=== PATIENT | female | born 1995 | race Caucasian/White ===

== ENCOUNTER 2017-11-15 21:13 | Emergency (ER) | payer OTHER, SELFPAY | END 2017-11-15 22:54 | disposition home or self-care (01) | PROVIDERS: Family Provider Internal Medicine; PCP Internal Medicine | DX: S39.012A Strain of muscle, fascia and tendon of lower back, initial encounter (principal) | CPT/HCPCS: 96372; 99283; J1885 ==

== ENCOUNTER 2018-01-08 21:04 | Emergency (ER) | payer OTHER, SELFPAY ==
[2018-01-08 21:07] VITALS: BP 123/82; PULSE 98; RESP 14; TEMP 37.1; O2SAT 100; BMI 41.1
--- NOTE | 2018-01-08 21:16 | ED.NAVMDI ---
HPI - Nausea/Vomiting/Diarrhea <ROSE Haines - Last Filed: 01/08/18 22:27> General Chief complaint: Nausea/Vomiting/Diarrhea Stated complaint: VOMITING TODAY AND NOT FEELING GOOD Time Seen by Provider: 01/08/18 21:24 History of Present Illness HPI Narrative: 22-year-old healthy female here for complaint of nausea vomiting and diarrhea that started since yesterday. She denies any fever but feels she has had chills. Positive p.o. intake. She denies any abdominal pain or flank pain. She reports several episodes of vomiting today. She denies any contacts with people that have similar symptoms. She denies any recent travel or time in the outdoors. She denies any changes in her diet. No other concerns or complaints Related Data Previous Rx's Medication Instructions Recorded ondansetron 4 mg PO Q6H PRN #10 tab 01/08/18 Allergies Allergy/AdvReac Type Severity Reaction Status Date / Time No Known Drug Allergies Allergy Verified 01/08/18 21:10 Review of Systems <ROSE Haines - Last Filed: 01/08/18 22:27> Constitutional Denies chills, Denies fever(s), Denies lethargy and Denies weakness Eyes Denies change in vision, Denies eye discharge, Denies irritation and Denies loss of vision ENT Ears, Nose, Mouth, and Throat: Denies change in voice, Denies neck pain and Denies sore throat Cardiovascular Denies chest pain, Denies irregular heart rhythm, Denies lightheadedness, Denies palpitations, Denies dyspnea, Denies dyspnea on exertion and Denies orthopnea Respiratory Denies cough, Denies dyspnea, Denies dyspnea on exertion and Denies wheezing Gastrointestinal Gastrointestinal: Reports diarrhea and Reports vomiting Genitourinary Denies hematuria, Denies flank pain, Denies urinary incontinence and Denies urinary urgency Musculoskeletal Denies neck pain Integumentary/Breasts Denies pruritus, Denies erythema, Denies rash and Denies wounds Neurologic Denies confusion, Denies loss of vision and Denies weakness Psychiatric Denies anxiety, Denies confusion, Denies depression, Denies homicidal ideation and Denies suicidal ideation Endocrine Denies palpitations Allergic/Immunologic Denies wheezing Exam <ROSE Haines Last Filed: 01/08/18 22:27> Initial Vital Signs Initial Vital Signs: Vital Signs Temperature 98.7 F 01/08/18 21:07 Pulse Rate 98 H 01/08/18 21:07 Respiratory Rate 14 01/08/18 21:07 Blood Pressure 123/82 H 01/08/18 21:07 Pulse Oximetry 100 01/08/18 21:07 Const General: cooperative and well developed Nutritional Appearance: well nourished Orientation: alert, awake, oriented x3 and not confused [facility] Mouth: oral mucosae normal, oropharynx normal and moist mucous membranes Eyes Conjunctivae: conjunctivae normal Sclera: sclerae normal Pupils: PERRL EOM: EOM intact bilaterally Resp Effort & Inspection: normal respiratory effort, able to speak in complete sentences, no respiratory distress and no use of accessory muscles Auscultation: clear to auscultation bilaterally, no rales, no rhonchi and no wheezes Cardio Rate: regular rate Rhythm: regular rhythm Heart Sounds: no click, no gallops, no murmurs and no rubs GI Inspection: non-distended Palpation: soft, no hepatosplenomegaly, No guarding, No pulsatile mass and No tender Auscultation: normal bowel sounds General: No CVA tenderness Skin General: no rashes or lesions noted, No jaundice and No petechiae <Remi Lennon DO - Last Filed: 01/08/18 22:44> Initial Vital Signs Initial Vital Signs: Vital Signs Temperature 98.7 F 01/08/18 21:07 Pulse Rate 98 H 01/08/18 21:07 Respiratory Rate 14 01/08/18 21:07 Blood Pressure 123/82 H 01/08/18 21:07 Pulse Oximetry 100 01/08/18 21:07 Course <ROSE Haines - Last Filed: 01/08/18 22:27> Orders Ordered: Discontinued Medications Sodium Chloride (Normal Saline 0.9%) 1,000 mls @ 1,000 mls/hr IV BOLUS ONE Stop: 01/08/18 22:19 Last Admin: 01/08/18 22:06 Dose: 1,000 mls/hr Ondansetron HCl (Zofran) 4 mg IV NOW ONE Stop: 01/08/18 21:21 Last Admin: 01/08/18 22:05 Dose: 4 mg Ondansetron HCl (Zofran Odt Prepack) 1 bottle MISC SEEINSTR ONE Stop: 01/08/18 22:19 Vital Signs - 8 hr 01/08/18 21:07 01/08/18 22:06 Temperature 98.7 F Pulse Rate 98 H 89 Respiratory Rate 14 18 Blood Pressure 123/82 H Blood Pressure [Right Arm] 121/72 H Pulse Oximetry 100 100 <Remi Lennon DO - Last Filed: 01/08/18 22:44> Orders Ordered: Discontinued Medications Sodium Chloride (Normal Saline 0.9%) 1,000 mls @ 1,000 mls/hr IV BOLUS ONE Stop: 01/08/18 22:19 Last Admin: 01/08/18 22:06 Dose: 1,000 mls/hr Ondansetron HCl (Zofran) 4 mg IV NOW ONE Stop: 01/08/18 21:21 Last Admin: 01/08/18 22:05 Dose: 4 mg Ondansetron HCl (Zofran Odt Prepack) [address] [facility] Stop: 01/08/18 22:19 Vital Signs - 8 hr 01/08/18 21:07 01/08/18 22:06 Temperature 98.7 F Pulse Rate 98 H 89 Respiratory Rate 14 18 Blood Pressure 123/82 H Blood Pressure [Right Arm] 121/72 H Pulse Oximetry 100 100 [facility] - Nausea/Vomiting/Diarrhea <ROSE Haines - Last Filed: 01/08/18 22:27> [facility] Narrative Medical decision making narrative: Urinalysis was obtained and was negative for and negative for urinary tract infection. Normal exam. No abdominal discomfort. Signs and symptoms presents as a viral illness. She was given Zofran IV and fluids in the emergency room which helped her to feel better. She is prescribed Zofran and to help with nausea. Plenty of fluids slowly advance diet as tolerated. Follow up with primary care provider in the next few days for re-evaluation. For any worsening symptoms return to the emergency room. Discharge Plan Departure Patient Disposition: Home, Self-Care Clinical Impression: Nausea vomiting and diarrhea Instructions: Nausea and Vomiting-Adult Activity Restrictions/Additional Instructions: Urinalysis was negative for signs of urinary tract infection. Signs and symptoms presents as a viral illness. Use Zofran as needed to help with the nausea and vomiting. Plenty of fluids. Slowly advance diet as tolerated. Follow up with her primary care provider in the next few days for re-evaluation. For any worsening symptoms return to the emergency room. Prescriptions: New ondansetron 4 mg tablet,disintegrating 4 mg PO Q6H PRN (Reason: nausea and vomiting) Qty: 10 RF: 0 Referrals: Facundo Moran MD [Primary Care Provider] - <Remi Lennon DO - Last Filed: 01/08/18 22:44> Cosign ED Attending Williamature Attestation: I was available for consultation during this patient's emergency department encounter
--- NOTE | 2018-01-08 21:59 | PC.NURSE ---
Initial 2 attempts done by primary RN
[2018-01-08] MEDS: ONDANSETRON 4 MG/2 ML INJ IV (22:05)
[2018-01-08 22:06] VITALS: BP 121/72; PULSE 89; RESP 18; O2SAT 100
[2018-01-08] MEDS: SODIUM CHLORIDE 0.9% 1,000 ML 1000 ML IV (22:06)
[2018-01-08 22:52] VITALS: BP 115/64; PULSE 88; RESP 15; O2SAT 100
[2018-01-08] MEDS: ONDANSETRON 4 MG ODT PREPACK 1 BOTTLE MISC (22:55)
== END 2018-01-08 22:59 | disposition home or self-care (01) ==
PROVIDERS: Emergency Provider Nurse Practitioner Family; Family Provider Internal Medicine; PCP Internal Medicine
DX: R11.2 Nausea with vomiting, unspecified (principal); R19.7 Diarrhea, unspecified
CPT/HCPCS: 36591; 81003; 81025; 96361; 96374; 99283; 99284; J2405

== ENCOUNTER 2018-02-05 21:12 | Emergency (ER) | payer OTHER, SELFPAY ==
[2018-02-05 21:46] VITALS: BP 137/70; PULSE 78; RESP 16; TEMP 36.9; O2SAT 100; BMI 38.4
[2018-02-05 22:08] LABS: Add Manual Diff / Slide Review NO; Basophils Percent Auto 0.8 % (0-2); Eosinophils Percent Auto 1.7 % (2-4); Hematocrit 36.6 % (36-46); Hemoglobin 12.3 g/dL (12.0-16.0); Lymphocytes Percent Auto 30.4 % (25-40); Mean Corpuscular HGB Conc 33.6 % (30-36); Mean Corpuscular Volume 80.4 fL (80-100); Monocytes Percent Auto 7.5 % (3-14); Neutrophils Absolute Auto 6700 /uL (3000-5900); Neutrophils Percent Auto 59.6 % (50-75); Platelet Count 296 X10^3/uL (150-400); Red Blood Cell Count 4.56 X10^6/uL (4.0-5.2); Red Cell Distribution Width 13.7 % (11.6-14.8); White Blood Cell Count 11.3 X10^3/uL (4.5-11.0)
[2018-02-05 22:15] LABS: Alanine Aminotransferase 56 IU/L (9-52); Albumin 4.3 g/dL (3.5-5.0); Albumin Globulin Ratio 1.2 (1.0-2.8); Alkaline Phosphatase 60 U/L (38-126); Aspartate Aminotransferase 38 IU/L (14-36); BUN Creatinine Ratio 18.3 (6-22); Bilirubin Total 0.4 mg/dL (0.2-1.3); Blood Urea Nitrogen 11 mg/dL (7-17); Calcium 9.2 mg/dL (8.4-10.2); Carbon Dioxide 26 mmol/L (22-32); Chloride 105 mmol/L (98-107); Estimated Glomerular Filt Rate > 60.0 mL/min (>60); Globulin 3.7 g/dL (1.7-4.1); Glucose 99 mg/dL (70-100); HEMOLYSIS 33 (0-50); Potassium 3.9 mmol/L (3.4-5.1); Sodium 142 mmol/L (137-145)
[2018-02-05] MEDS: SODIUM CHLORIDE 0.9% 1,000 ML 1000 ML IV (22:25)
[2018-02-05] MEDS: ONDANSETRON 4 MG/2 ML INJ IV (22:25)
[2018-02-05 23:04] VITALS: BP 108/64; PULSE 78; RESP 14; O2SAT 100
--- NOTE | 2018-02-06 04:25 | ED_ITS ---
HPI - Nausea/Vomiting/Diarrhea General Chief complaint: Nausea/Vomiting/Diarrhea Stated complaint: NAUSEA AND VOMITING SINCE YESTERDAY Time Seen by Provider: 02/05/18 21:35 Source: patient and family Mode of arrival: ambulatory Limitations: no limitations History of Present Illness HPI Narrative: 22-year-old otherwise healthy female presents a few episodes of nausea and vomiting over the past day or 2 with 1 episode of loose stool. She has mild generalized abdominal cramping. She denies recent travel, antibiotic use, or exposure to bad food. MD complaint: nausea, vomiting, diarrhea and abdominal pain Onset (ago): day(s) Description of Diarrhea: none Associated Abdominal Pain: Yes Location of pain: diffuse Radiation: diffuse Severity: mild Quality: cramping and aching Pain Consistency: constant Associated symptoms: denies other symptoms Related Data Previous Rx's Medication Instructions Recorded ondansetron 4 mg PO Q6H PRN #10 tab 01/08/18 Allergies Allergy/AdvReac Type Severity Reaction Status Date / Time No Known Drug Allergies Allergy Verified 01/08/18 21:10 Review of Systems Review of Systems All systems reviewed & are unremarkable except as noted in HPI and below Constitutional Denies chills, Denies fever(s), Denies lethargy and Denies weakness Eyes Denies change in vision, Denies eye discharge, Denies irritation and Denies loss of vision ENT Ears, Nose, Mouth, and Throat: Denies change in voice, Denies neck pain and Denies sore throat Cardiovascular Denies chest pain, Denies irregular heart rhythm, Denies lightheadedness, Denies palpitations, Denies dyspnea, Denies dyspnea on exertion and Denies orthopnea Respiratory Denies cough, Denies dyspnea, Denies dyspnea on exertion and Denies wheezing Gastrointestinal Gastrointestinal: Reports abdominal pain, Denies change in bowel habits, Reports diarrhea, Reports nausea and Reports vomiting Genitourinary Denies hematuria, Denies flank pain, Denies urinary incontinence and Denies urinary urgency Musculoskeletal Denies neck pain Integumentary/Breasts Denies pruritus, Denies erythema, Denies rash and Denies wounds Neurologic Denies confusion, Denies loss of vision and Denies weakness Psychiatric Denies anxiety, Denies confusion, Denies depression, Denies homicidal ideation and Denies suicidal ideation Endocrine Denies palpitations Hematologic/Lymphatic Denies easy bruising Allergic/Immunologic Denies wheezing PFSH Social History Smoking Status: Never smoker Exam Narrative Exam Narrative: Pleasant 22-year-old female in no obvious distress. Moist mucous membranes Initial Vital Signs Initial Vital Signs: Vital Signs Temperature 98.4 F 02/05/18 21:46 Pulse Rate 78 02/05/18 21:46 Respiratory Rate 16 02/05/18 21:46 Blood Pressure 137/70 H 02/05/18 21:46 Pulse Oximetry 100 02/05/18 21:46 Const General: cooperative and well developed Nutritional Appearance: well nourished Orientation: alert, awake, oriented x3 and not confused HENND Head: normocephalic and atraumatic Ears: external ears normal and TM's normal bilaterally Nose: external nose normal and No nasal discharge Face and sinus: sinuses nontender, face symmetric, no sinus tenderness and No dry mucous membranes Mouth: oral mucosae normal and moist mucous membranes Teeth and gingiva: dentition normal Throat: tonsils normal and uvula midline Chest Chest: normal inspection of the chest Cardio Rate: regular rate Rhythm: regular rhythm Heart Sounds: no click, no gallops, no murmurs and no rubs Pulses: normal peripheral pulses Back/Spine/Pelvis Back: No CVA tenderness Cervical Spine: cervical ROM normal and No pain with cervical ROM Thoracic/Lumbar Spine: thoracic and lumbar spine normal to inspection Skin General: no rashes or lesions noted, No jaundice and No petechiae Extrem General: full ROM, no clubbing, cyanosis or edema, no pedal edema and no calf tenderness Course Orders Ordered: ED Orders 02/05/18 21:55 Complete Blood Count AUTO DIFF Stat Comprehensive Metabolic Panel Stat Discontinued Medications Sodium Chloride (Normal Saline 0.9%) 1,000 mls @ 1,000 mls/hr IV BOLUS ONE Stop: 02/05/18 23:00 Last Infusion: 02/05/18 23:03 Dose: 0 mls/hr Admin: 02/05/18 22:25 Dose: 1,000 mls/hr Ondansetron HCl (Zofran) 4 mg IV NOW ONE Stop: 02/05/18 22:02 Last Admin: 02/05/18 22:25 Dose: 4 mg Vital Signs - 8 hr 02/05/18 21:46 02/05/18 23:04 Temperature 98.4 F Pulse Rate 78 78 Respiratory Rate 16 14 Blood Pressure 137/70 H 108/64 Pulse Oximetry 100 100 MDM - Nausea/Vomiting/Diarrhea Differential Diagnosis Likely traveler's diarrhea, food poisoning, gastroenteritis and dehydration Lab Data Result diagrams: 02/05/18 21:55 02/05/18 21:55 Lab Results 02/05/18 02/05/18 Range/Units 21:55 21:55 WBC 11.3 H (4.5-11.0) X10^3/uL RBC 4.56 (4.0-5.2) X10^6/uL Hgb 12.3 (12.0-16.0) g/dL Hct 36.6 (36-46) % MCV 80.4 (80-100) fL MCH 27.0 (26-34) PG MCHC 33.6 (30-36) % RDW 13.7 (11.6-14.8) % Plt Count 296 (150-400) X10^3/uL Neut % (Auto) 59.6 (50-75) % Lymph % (Auto) 30.4 (25-40) % [place] % (Auto) 7.5 (3-14) % Eos % (Auto) 1.7 L (2-4) % Baso % (Auto) 0.8 (0-2) % Neut # (Auto) 6700 H (6579-3610) /uL Sodium 142 (137-145) mmol/L Potassium 3.9 (3.4-5.1) mmol/L Chloride 105 (98-107) mmol/L Carbon Dioxide 26 (22-32) mmol/L BUN 11 (7-17) mg/dL Creatinine 0.60 (0.52-1.04) mg/dL Estimated GFR > 60.0 (>60) mL/min BUN/Creatinine Ratio 18.3 (6-22) Glucose 99 (70-100) mg/dL Calcium 9.2 (8.4-10.2) mg/dL Total Bilirubin 0.4 (0.2-1.3) mg/dL AST 38 H (14-36) IU/L ALT 56 H (9-52) IU/L Alkaline Phosphatase 60 (38-126) U/L Total Protein 8.0 (6.3-8.2) g/dL Albumin 4.3 (3.5-5.0) g/dL Globulin 3.7 (1.7-4.1) g/dL Albumin/Globulin Ratio 1.2 (1.0-2.8) Discharge Plan Departure Patient Disposition: Home, Self-Care Clinical Impression: Vomiting Discharge Date/Time: 02/05/18 23:05 Interventions: ED Discharge Assessment Last Done: 02/05/18 23:04 Instructions: DI for Vomiting -- Adult Activity Restrictions/Additional Instructions: 1. Drink plenty of fluids with frequent small sips. 2. For the next 24 hours a clear liquid diet is advised. After that please employ a brat diet which would include bananas, rice, apples, toast. 3. Please take medications as directed. 4. Please follow-up with your doctor in the next 1-2 days. Call the office for an appointment. 5. Please return to the emergency Department for any worsening or persistent symptoms, such as increasing pain or fever. Prescriptions: No Action ondansetron 4 mg tablet,disintegrating 4 mg PO Q6H PRN (Reason: nausea and vomiting) Qty: 10 RF: 0
== END 2018-02-05 23:05 | disposition home or self-care (01) ==
PROVIDERS: Emergency Provider Emergency Medicine; Family Provider Internal Medicine; PCP Internal Medicine
DX: R11.10 Vomiting, unspecified (principal)
CPT/HCPCS: 36591; 80053; 81003; 81025; 85025; 96361; 96374; 99283; 99284; J2405

== ENCOUNTER 2018-02-10 22:00 | Emergency (ER) | payer OTHER, SELFPAY ==
[2018-02-10 22:20] VITALS: BP 131/80; PULSE 87; RESP 15; TEMP 37.1; O2SAT 99; BMI 37.8
[2018-02-11 01:17] VITALS: PULSE 84
--- NOTE | 2018-02-11 01:28 | ED_ITS ---
HPI - Extremity Problem General Chief complaint: Extremity Problem,Nontraumatic Stated complaint: left thigh pain Source: patient Mode of arrival: ambulatory Limitations: no limitations History of Present Illness HPI Narrative: Patient presents to the emergency department today with a chief complaint of some left anterior thigh pain in the absence of any significant injury. She denies taking any Tylenol or Motrin to help with the pain. She denies specific injury but does state she was lifting some heavy objects at home the other day. She does have chronic back pain and when she walks she feels as if the pain radiates up into her back. She denies any trouble with bowel or bladder control. She denies numbness, tingling or weakness. She has had no fever or chills. She denies recent travel or history of blood clots. She denies any rash or other sign of infection MD Complaint: extremity pain Onset (ago): day(s) Pain Consistency: constant Location: left Quality: burning, stabbing and aching Radiation: proximal Relieving factors: nothing Exacerbating factors: weight bearing and walking Associated symptoms: denies other symptoms Related Data Previous Rx's Medication Instructions Recorded ondansetron 4 mg PO Q6H PRN #10 tab 01/08/18 ibuprofen 600 mg PO TID-QID PRN #20 tab 02/11/18 prednisone 20 mg PO DAILY #4 tab 02/11/18 Allergies Allergy/AdvReac Type Severity Reaction Status Date / Time No Known Drug Allergies Allergy Verified 02/10/18 22:20 Review of Systems Review of Systems All systems reviewed & are unremarkable except as noted in HPI and below Constitutional Denies chills, Denies fever(s), Denies lethargy and Denies weakness Eyes Denies change in vision, Denies eye discharge, Denies irritation and Denies loss of vision ENT Ears, Nose, Mouth, and Throat: Denies change in voice, Denies neck pain and Denies sore throat Cardiovascular Denies chest pain, Denies irregular heart rhythm, Denies lightheadedness, Denies palpitations, Denies dyspnea, Denies dyspnea on exertion and Denies orthopnea Respiratory Denies cough, Denies dyspnea, Denies dyspnea on exertion and Denies wheezing Gastrointestinal Gastrointestinal: Denies abdominal pain, Denies change in bowel habits, Denies diarrhea, Denies nausea and Denies vomiting Genitourinary Denies hematuria, Denies flank pain, Denies urinary incontinence and Denies urinary urgency Musculoskeletal Denies neck pain Integumentary/Breasts Denies pruritus, Denies erythema, Denies rash and Denies wounds Neurologic Denies confusion, Denies loss of vision and Denies weakness Psychiatric Denies anxiety, Denies confusion, Denies depression, Denies homicidal ideation and Denies suicidal ideation Endocrine Denies palpitations Hematologic/Lymphatic Denies easy bruising Allergic/Immunologic Denies wheezing PFSH Social History Smoking Status: Never smoker Exam Narrative Exam Narrative: 22-year-old female in no significant or Initial Vital Signs Initial Vital Signs: Vital Signs Temperature 98.8 F 02/10/18 22:20 Pulse Rate 87 02/10/18 22:20 Respiratory Rate 15 02/10/18 22:20 Blood Pressure 131/80 H 02/10/18 22:20 Pulse Oximetry 99 02/10/18 22:20 Const General: cooperative and well developed Nutritional Appearance: well nourished Orientation: alert, awake, oriented x3 and not confused HENMT Head: normocephalic and atraumatic Ears: external ears normal and TM's normal bilaterally Nose: external nose normal and No nasal discharge Face and sinus: sinuses nontender, face symmetric, no sinus tenderness and No dry mucous membranes Mouth: oral mucosae normal and moist mucous membranes Teeth and gingiva: dentition normal Throat: tonsils normal and uvula midline Resp Effort & Inspection: normal respiratory effort, able to speak in complete sentences, no respiratory distress and no use of accessory muscles Auscultation: clear to auscultation bilaterally, no rales, no rhonchi and no wheezes GI Inspection: non-distended Palpation: soft, no hepatosplenomegaly, No guarding, No pulsatile mass and No tender Auscultation: normal bowel sounds Back/Spine/Pelvis Back: No CVA tenderness Cervical Spine: cervical ROM normal and No pain with cervical ROM Thoracic/Lumbar Spine: thoracic and lumbar spine normal to inspection and straight leg raise positive Skin Other: No signs of rash or other lesion on left anterior thigh. No warmth, induration or fluctuance Neuro General: alert, oriented x3, gait normal and no focal motor deficits Speech: speech normal DTR's: Rt Patellar: 2+ and Lt Patellar: 2+ Extrem Left lower extremity: full ROM; no edema Other: No obvious external manifestation of underlying clot, infection or other Course Orders Ordered: Discontinued Medications Ibuprofen (Advil) 800 mg PO NOW ONE Stop: 02/11/18 01:29 Prednisone (Deltasone) 40 mg PO NOW ONE Stop: 02/11/18 01:29 Vital Signs - 8 hr 02/10/18 22:20 02/11/18 01:17 Temperature 98.8 F Pulse Rate 87 Pulse Rate [Left Dorsalis Pedis] 84 Respiratory Rate 15 Blood Pressure 131/80 H Pulse Oximetry 99 MDM - Extremity (Nontraumatic) Differential Diagnosis Likely herpes zoster, cellulitis, superficial thrombophlebitis, lower extremity edema and deep vein thrombosis of lower extremity MDM Narrative Medical decision making narrative: Zoster unlikely as there is no characteristic rash or distribution of the single dermatome Cellulitis unlikely as there is no redness or warmth Superficial or deep clot unlikely as there is no warmth, redness or swelling Discharge Plan Departure Patient Disposition: Home, Self-Care Clinical Impression: Back pain, Acute leg pain Instructions: DI for Low Back Pain Activity Restrictions/Additional Instructions: *You have been diagnosed with [ acute low back pain with radiation to left l leg ] *What to do: *Take medications as directed *Follow up with your primary care provider in 2-3 days, call for an appointment. Let them know you were seen in the Emergency Department and that we ask that you be seen in follow up *Return to ER if you should have any new, worsening or concerning symptoms , such as [ difficulty with bowel or bladder control, weakness of left leg or other bothersome symptoms] Prescriptions: New ibuprofen 600 mg tablet 600 mg PO TID-QID PRN (Reason: pain) Qty: 20 RF: 0 prednisone 20 mg tablet 20 mg PO DAILY Qty: 4 RF: 0 No Action ondansetron 4 mg tablet,disintegrating 4 mg PO Q6H PRN (Reason: nausea and vomiting) Qty: 10 RF: 0 Referrals: Facundo Moran MD [Primary Care Provider] -
[2018-02-11] MEDS: IBUPROFEN 400 MG TABLET 800 MG PO (01:37)
[2018-02-11] MEDS: predniSONE 20 MG TABLET 40 MG PO (01:37)
[2018-02-11 01:57] VITALS: BP 138/80; PULSE 88; RESP 16; O2SAT 99
== END 2018-02-11 01:58 | disposition home or self-care (01) ==
PROVIDERS: Emergency Provider Emergency Medicine; Family Provider Internal Medicine; PCP Internal Medicine
DX: M54.9 Dorsalgia, unspecified (principal); M79.605 Pain in left leg
CPT/HCPCS: 99282; 99283

== ENCOUNTER 2018-06-23 22:08 | Emergency (ER) | payer OTHER, SELFPAY ==
[2018-06-23 22:15] VITALS: BMI 38.4
[2018-06-23 22:17] VITALS: BP 126/88; PULSE 96; RESP 18; O2SAT 98
--- NOTE | 2018-06-23 22:20 | PC.NURSE ---
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 R dominant hand. +CMS intact.
--- NOTE | 2018-06-24 03:00 | ED.UPPEXIN ---
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 She did not fall and denies any direct trauma. She denies numbness, tingling or weakness. She admits to pain on the volar lateral surface of her right forearm. She denies any redness or swelling or any fever or chills. She has no history of the same MD complaint: injury to: right Onset (ago): hour(s) Other Extremity Injury: Right: forearm Other injuries: none Handedness: right Place: work Severity: mild Relieving factors: none Exacerbating factors: movement of extremity Context: injury Associated symptoms: denies other symptoms Related Data Previous Rx's Medication Instructions Recorded ondansetron 4 mg PO Q6H PRN #10 tab 01/08/18 ibuprofen 600 mg PO TID-QID PRN #20 tab 02/11/18 prednisone 20 mg PO DAILY #4 tab 02/11/18 Allergies Allergy/AdvReac Type Severity Reaction Status Date / Time No Known Drug Allergies Allergy Verified 02/10/18 22:20 Review of Systems Review of Systems All systems reviewed & are unremarkable except as noted in HPI and below Constitutional Denies chills, Denies fever(s), Denies lethargy and Denies weakness Eyes Denies change in vision, Denies eye discharge, Denies irritation and Denies loss of vision ENT Ears, Nose, Mouth, and Throat: Denies change in voice, Denies neck pain and Denies sore throat Cardiovascular Denies chest pain, Denies irregular heart rhythm, Denies lightheadedness, Denies palpitations, Denies dyspnea, Denies dyspnea on exertion and Denies orthopnea Respiratory Denies cough, Denies dyspnea, Denies dyspnea on exertion and Denies wheezing Gastrointestinal Gastrointestinal: Denies abdominal pain, Denies change in bowel habits, Denies diarrhea, Denies nausea and Denies vomiting Genitourinary Denies hematuria, Denies flank pain, Denies urinary incontinence and Denies urinary urgency Musculoskeletal Denies neck pain and Reports radiating pain into limb Integumentary/Breasts Denies pruritus, Denies erythema, Denies rash and Denies wounds Neurologic Denies confusion, Denies loss of vision and Denies weakness Psychiatric Denies anxiety, Denies confusion, Denies depression, Denies homicidal ideation and Denies suicidal ideation Endocrine Denies palpitations Hematologic/Lymphatic Denies easy bruising Allergic/Immunologic Denies wheezing [facility] Social History Smoking Status: Never smoker Exam Narrative Exam Narrative: GEN: AOx3 and in mild distress, resting comfortably and splinting her right arm EYES: Pupils are equal, round, and reactive to light and accommodation. Extraoccular muscles are intact bilaterally. There is no subconjunctival hemorrhage or exudate. CHEST: Lungs are clear to auscultation bilaterally and free of wheezes, rales, or rhonchi. Heart rate is regular rhythm, there are no murmurs, clicks, rubs, or gallops. There is no chest wall tenderness. ABD: Abdomen is soft and nontender. There is no guarding or rebound. Bowel sounds are normal in all 4 quadrants. There is no mass or organomegaly. EXT: Full painless ROM of all extremities with no loss of sensation or strength. No obvious deformity to right forearm. No swelling, redness or ecchymosis. Full sensation, strength and range of motion SKIN: Warm, pink, and dry. No erythema or rash Initial Vital Signs Initial Vital Signs: Vital Signs Pulse Rate 96 H 06/23/18 22:17 Respiratory Rate 18 06/23/18 22:17 Blood Pressure 126/88 06/23/18 22:17 Pulse Oximetry 98 06/23/18 22:17 Course Vital Signs - 8 hr 06/23/18 22:17 Pulse Rate 96 H Respiratory Rate 18 Blood Pressure [Left Arm] 126/88 Pulse Oximetry 98 Discharge Plan Departure Patient Disposition: Home Clinical Impression: Forearm strain Discharge Date/Time: 06/23/18 22:50 Interventions: ED Discharge Assessment Last Done: 06/23/18 22:50 Instructions: DI for Forearm Muscle Strain Activity Restrictions/Additional Instructions: *You have been diagnosed with [ right forearm strain ] *What to do: *Take medications as directed: Motrin or Tylenol for pain *Follow up with your primary care provider in 2-3 days, call for an appointment. Let them know you were seen in the Emergency Department and that we ask that you be seen in follow up *Return to ER if you should have any new, worsening or concerning symptoms, such as [increasing pain, swelling, redness, fever or chills ] *Light duty for 1 week. No lifting greater than 15lbs. You must be evaluated by your doctor, or an L&I doctor for full clearance and full duty. Prescriptions: No Action ondansetron 4 mg tablet,disintegrating 4 mg PO Q6H PRN (Reason: nausea and vomiting) Qty: 10 RF: 0 ibuprofen 600 mg tablet 600 mg PO TID-QID PRN (Reason: pain) Qty: 20 RF: 0 prednisone 20 mg tablet 20 mg PO DAILY Qty: 4 RF: 0 Referrals: Facundo Moran MD [Primary Care Provider] -
--- NOTE | 2018-07-04 16:38 | PC.NURSE ---
Pt called regarding L and I paperwork. I informed patient it had not been started. Pt requested L and I be started. Claim number [id number] started.
== END 2018-06-23 22:50 | disposition home or self-care (01) ==
PROVIDERS: Emergency Provider Emergency Medicine; Family Provider Internal Medicine; PCP Internal Medicine
DX: S56.911A Strain of unspecified muscles, fascia and tendons at forearm level, right arm, initial encounter (principal); X50.0XXA Overexertion from strenuous movement or load, initial encounter
CPT/HCPCS: 99282

== ENCOUNTER → 2018-08-30 17:43 | Outpatient (CLI) | payer OTHER, SELFPAY ==
[2018-08-30 18:09] LABS: Add Manual Diff / Slide Review NO; Basophils Absolute Auto 100 /uL (0-100); Basophils Percent Auto 0.7 % (0-2); Eosinophils Absolute Auto 200 /uL (0-450); Eosinophils Percent Auto 1.9 % (2-4); Hematocrit 38.1 % (36-46); Hemoglobin 12.6 g/dL (12.0-16.0); Lymphocytes Absolute Auto 3300 /uL (1100-4500); Mean Corpuscular HGB Conc 33.2 % (30-36); Mean Corpuscular Hemoglobin 26.4 PG (26-34); Mean Corpuscular Volume 79.7 fL (80-100); Monocytes Absolute Auto 800 /uL (0-900); Monocytes Percent Auto 7.7 % (3-14); Neutrophils Absolute Auto 6000 /uL (1500-7000); Neutrophils Percent Auto 57.7 % (50-75); Platelet Count 329 X10^3/uL (150-400); Red Blood Cell Count 4.77 X10^6/uL (4.0-5.2); Red Cell Distribution Width 13.8 % (11.6-14.8); White Blood Cell Count 10.4 X10^3/uL (4.5-11.0)
[2018-08-30 19:04] LABS: Alanine Aminotransferase 49 IU/L (9-52); Albumin 4.1 g/dL (3.5-5.0); Albumin Globulin Ratio 1.3 (1.0-2.8); Alkaline Phosphatase 55 U/L (38-126); Aspartate Aminotransferase 34 IU/L (14-36); Bilirubin Total 0.4 mg/dL (0.2-1.3); Blood Urea Nitrogen 12 mg/dL (7-17); Carbon Dioxide 24 mmol/L (22-32); Chloride 104 mmol/L (98-107); Cholesterol 134 mg/dL (140-199); Estimated Glomerular Filt Rate > 60.0 mL/min (>60); Globulin 3.2 g/dL (1.7-4.1); Glucose 116 mg/dL (70-100); HDL Cholesterol 35 mg/dL (40-60); HEMOLYSIS 26 (0-50); LDL Cholesterol Calculated 70 mg/dL (<100); Sodium 139 mmol/L (137-145); Total Protein 7.3 g/dL (6.3-8.2); Triglycerides 143 mg/dL (35-150)
[2018-08-30 19:34] LABS: TSH w/ Reflex to FT4 1.08 uIU/mL (0.47-4.68)
== END ==
PROVIDERS: PCP Student in an Organized Health Care Education/Training Program; Visit Provider Student in an Organized Health Care Education/Training Program
DX: F32.9 Major depressive disorder, single episode, unspecified (principal); Z13.220 Encounter for screening for lipoid disorders; Z13.228 Encounter for screening for other metabolic disorders
CPT/HCPCS: 36415; 80053; 80061; 84443; 85025

== ENCOUNTER 2018-12-12 21:08 | Emergency (ER) | payer OTHER, SELFPAY ==
[2018-12-12 21:11] VITALS: BP 108/71; PULSE 73; RESP 14; TEMP 36.7; O2SAT 98
--- NOTE | 2018-12-12 22:35 | PC.NURSE ---
Pt states pain to right ear since yesterday after routinely cleaning her ear with a cotton swab and hydrogen peroxide. States cotton swab may have gone in too far injuring her inner ear. Denies drainage, internal ear exam deferred to Dr. Smalls.
--- NOTE | 2018-12-12 22:47 | ED_ITS ---
HPI - Ear Problem General Chief complaint: Ear Stated complaint: RT EAR PAIN Time Seen by Provider: 12/12/18 22:46 Source: patient Mode of arrival: ambulatory Limitations: no limitations History of Present Illness HPI Narrative: The patient complains of right ear pain since yesterday. She denies any recent URI symptoms, no sinus congestion, sore throat or fever. In recent days she did have a cough, but seemed resolved before now. She has no history of chronic ear infections. She has no drainage from the right ear. Related Data Home Medications Medication Instructions Recorded Confirmed No Known Home Medications 12/12/18 12/12/18 Allergies Allergy/AdvReac Type Severity Reaction Status Date / Time No Known Drug Allergies Allergy Verified 02/10/18 22:20 Review of Systems Review of Systems ROS Unobtainable: All systems reviewed & are unremarkable except as noted in HPI and below Constitutional Reports as per HPI, Denies chills, Denies fever(s), Denies lethargy and Denies weakness Eyes Denies eye discharge ENT Ears, Nose, Mouth, and Throat: Denies change in voice, Denies neck pain and Denies sore throat Cardiovascular Denies chest pain, Denies lightheadedness, Denies palpitations and Denies dyspnea Respiratory Denies cough, Denies dyspnea and Reports wheezing Musculoskeletal Denies neck pain Neurologic Denies weakness Endocrine Denies palpitations Allergic/Immunologic Reports wheezing [facility] [place] Medical History No active medical problems (Acute) Surgical History No pertinent past surgical history (Acute) Social History Smoking Status: Never smoker Social History Smoking Status: Never smoker Exam Initial Vital Signs Initial Vital Signs: Vital Signs Temperature 98.1 F 12/12/18 21:11 Pulse Rate 73 12/12/18 21:11 Respiratory Rate 14 12/12/18 21:11 Blood Pressure 108/71 12/12/18 21:11 Pulse Oximetry 98 12/12/18 21:11 Const General: cooperative and well developed Nutritional Appearance: well nourished Orientation: alert, awake, oriented x3 and not confused [facility] Head: normocephalic and atraumatic Ears: external ears normal, TM normal on the left and unable to visualize TM (Due to cerumen impaction) on the right Nose: external nose normal and No nasal discharge Face and sinus: sinuses nontender and face symmetric Mouth: oral mucosae normal and moist mucous membranes Teeth and gingiva: dentition normal Throat: tonsils normal and uvula midline Eyes General: appearance normal, both eyes and all related structures Eyelids: eyelids normal Conjunctivae: conjunctivae normal Sclera: sclerae normal Pupils: PERRL EOM: EOM intact bilaterally Neck Neck: normal visual inspection, trachea midline, No lymphadenopathy, No midline deformity and No JVD Course Course Narrative: The right ear had packed cerumen in the EAC. The patient's nurse initiated irrigation using warm water and peroxide. A small amount ear was removed. I later irrigated with warm water with the syringe. A large amount of wax was removed from the ear canal, was done the ear canals clear. The TMs is slightly inflamed, but not infected. Vital Signs - 8 hr 12/12/18 21:11 Temperature 98.1 F Pulse Rate 73 Respiratory Rate 14 Blood Pressure 108/71 Pulse Oximetry 98 Discharge Plan Departure Patient Disposition: Home Clinical Impression: Cerumen impaction Qualifiers: Laterality: right Qualified Code(s): H61.21 - Impacted cerumen, right ear Instructions: Cerumen Impaction Activity Restrictions/Additional Instructions: Follow-up with her doctor for ongoing ear pain, return here if necessary. Prescriptions: No Action No Known Home Medications RF: 0 Referrals: Akila Skinner PA-C [Primary Care Provider] -
== END 2018-12-12 23:32 | disposition home or self-care (01) ==
PROVIDERS: Emergency Provider Emergency Medicine; Family Provider Internal Medicine; PCP Student in an Organized Health Care Education/Training Program
DX: H61.21 Impacted cerumen, right ear (principal)
CPT/HCPCS: 69209; 99282; 99283

== ENCOUNTER → 2020-02-12 16:40 | Outpatient (CLI) | payer OTHER, SELFPAY ==
[2020-02-12 18:27] LABS: HCG Quantitative /Beta subunit < 2.4 mIU/mL
== END ==
PROVIDERS: Family Provider Internal Medicine; PCP Registered Nurse Diabetes Educator; Referring Provider Registered Nurse Diabetes Educator; Visit Provider Registered Nurse Diabetes Educator
DX: Z31.9 Encounter for procreative management, unspecified (principal)
CPT/HCPCS: 36415; 84702

== ENCOUNTER → 2020-03-06 13:56 | Outpatient (CLI) | payer OTHER, SELFPAY ==
[2020-03-08 15:36] LABS: COVID19 Sendout Not Detected (Not Detected)
== END ==
PROVIDERS: Family Provider Internal Medicine; PCP Registered Nurse Diabetes Educator; Visit Provider Physician Assistant
DX: Z11.59 Encounter for screening for other viral diseases (principal); R53.83 Other fatigue
CPT/HCPCS: 87635

== ENCOUNTER 2020-11-04 20:48 | Emergency (ER) | payer OTHER, SELFPAY ==
[2020-11-04 20:53] VITALS: BP 120/67; PULSE 92; RESP 15; TEMP 37.2; O2SAT 100; BMI 41.6
== END 2020-11-04 21:01 | disposition left against medical advice (07) ==
PROVIDERS: Emergency Provider Emergency Medicine; Family Provider Internal Medicine; PCP Registered Nurse Diabetes Educator; Referring Provider Registered Nurse Diabetes Educator
DX: R22.2 Localized swelling, mass and lump, trunk (principal)
CPT/HCPCS: 99281

== ENCOUNTER → 2021-07-13 14:51 | Outpatient (CLI) | payer OTHER, SELFPAY ==
[2021-07-13 17:10] LABS: HCG Quantitative /Beta subunit < 2.4 mIU/mL
== END ==
PROVIDERS: Family Provider Internal Medicine; PCP Registered Nurse Diabetes Educator; Referring Provider Registered Nurse Diabetes Educator; Visit Provider Registered Nurse Diabetes Educator
DX: Z32.02 Encounter for pregnancy test, result negative (principal)
CPT/HCPCS: 36415; 84702

== ENCOUNTER 2021-08-27 17:15 | Emergency (ER) | payer OTHER, SELFPAY ==
[2021-08-27] VITALS (9 sets, daily range): BP systolic 113–134; BP diastolic 57–73; PULSE 78–89; RESP 20; TEMP 36.9; O2SAT 99–100; BMI 46.4
[2021-08-27 17:53] LABS: Add Manual Diff / Slide Review NO; Basophils Absolute Auto 100 /uL (0-100); Basophils Percent Auto 0.8 % (0-2); Eosinophils Absolute Auto 100 /uL (0-450); Eosinophils Percent Auto 1.1 % (2-4); Hematocrit 39.1 % (36-46); Hemoglobin 13.6 g/dL (12.0-16.0); Lymphocytes Absolute Auto 2800 /uL (1100-4500); Lymphocytes Percent Auto 28.7 % (25-40); Mean Corpuscular HGB Conc 34.6 % (30-36); Mean Corpuscular Hemoglobin 28.3 PG (26-34); Mean Corpuscular Volume 81.6 fL (80-100); Monocytes Absolute Auto 600 /uL (0-900); Monocytes Percent Auto 5.7 % (3-14); Neutrophils Absolute Auto 6200 /uL (1500-7000); Neutrophils Percent Auto 63.7 % (50-75); Platelet Count 285 X10^3/uL (150-400); Red Cell Distribution Width 13.4 % (11.6-14.8); White Blood Cell Count 9.8 X10^3/uL (4.5-11.0)
[2021-08-27 17:59] LABS: Alanine Aminotransferase 62 IU/L (<35); Albumin 4.5 g/dL (3.5-5.0); Albumin Globulin Ratio 1.2 (1.0-2.8); Alkaline Phosphatase 68 U/L (38-126); Aspartate Aminotransferase 53 IU/L (14-36); BUN Creatinine Ratio 17.2 (6-22); Bilirubin Total 0.8 mg/dL (0.2-1.3); Blood Urea Nitrogen 10 mg/dL (7-17); Calcium 9.7 mg/dL (8.4-10.2); Carbon Dioxide 28 mmol/L (22-32); Chloride 101 mmol/L (98-107); Estimated Glomerular Filt Rate > 60.0 mL/min (>60); Globulin 3.9 g/dL (1.7-4.1); Glucose 116 mg/dL (70-100); HEMOLYSIS < 15 (0-50); Lipase 76 U/L (23-300); Potassium 3.8 mmol/L (3.4-5.1); Sodium 137 mmol/L (137-145); Total Protein 8.4 g/dL (6.3-8.2)
--- NOTE | 2021-08-27 18:05 | ED_ITS ---
HPI - Abdominal Pain <ROSE Barragan - Last Filed: 08/27/21 20:53> General Chief Complaint: Abdominal Pain Stated Complaint: PAIN IN RIBS Time Seen by Provider: 08/27/21 17:41 Source: patient Mode of arrival: Ambulatory History of Present Illness HPI narrative: 25-year-old female presents to the emergency department complaining of right rib pain along her breast line, which is intermittent and has been coming and going for the last 2 days. Patient denies any fever, denies any pain with relation to food, denies any nausea vomiting, states she is overdue for her med these by 2 days, is trying to get , denies history of PCOS or other [employer] abnormality, is not on control. She denies any abnormal bowel movements, dysuria, abdominal pain, breast pain or rib pain but she endorses pain along her rib under her breast and currently does not have the pain. Patient states she has an upcoming transvaginal ultrasound to evaluate if she has PCOS, she denies any pelvic pain, abnormal vaginal discharge, or any other abnormality. Related Data Home Medications Medication Instructions Recorded Confirmed No Known Home Medications 12/12/18 08/24/21 Allergies Allergy/AdvReac Type Severity Reaction Status Date / Time No Known Drug Allergies Allergy Verified 08/27/21 17:21 Review of Systems <ROSE Barragan - Last Filed: 08/27/21 20:53> Review of Systems Narrative: General: denies fever, chills, malaise, sweats, fatigue Head/Neck: denies headache, neck pain, dizziness Eyes: denies visual changes, eye pain Cardio: denies chest pain, palpitations, edema Respiratory: denies dyspnea, cough, orthopnea GI: denies abdominal pain, nausea, vomiting, or diarrhea : denies dysuria, hematuria, urinary retention, frequency or incontinence MSK: denies joint pain, muscle weakness Skin: denies rash, itching, skin lesions or other Neuro: denies numbness, tingling Patient History <ROSE Barragan - Last Filed: 08/27/21 20:53> Medical History No active medical problems Patient desires Well woman exam Surgical History No pertinent past surgical history Social History Smoking Status: Never smoker Smoking Status: Never smoker alcohol intake frequency: a few times a month Substance Use Type: does not use Exam <ROSE Barragan - Last Filed: 08/27/21 20:53> Narrative Exam Narrative: Independently reviewed vitals signs and nursing notes. General: Awake, alert, well-nourished and obese, nontoxic, no cardiorespiratory distress Head/Neck: Atraumatic, neck full range of motion, trachea midline, no JVD or lymphadenopathy. Supple, nontender, no meningeal signs. Eyes: Pupils equal round and reactive, EOMI, conjunctiva normal, no scleral icterus or injections Nose: nares patent, no rhinorrhea, without purulent drainage or septal hematoma. Mouth/Throat: uvula midline, moist mucus membranes, posterior pharynx normal, no oral lesions, airway patent Cardio: Regular rate and rhythm, no peripheral edema Respiratory: respirations unlabored without wheezing, stridor, or rales. No re tractions. GI: Abdomen soft, nontender to palpation in all quadrants even along breast line where she endorses intermittent pain. Currently no pain, abdomen is nondistended, no hepato-spenomegaly MSK: Moves all extremities, neurovascularly intact, no flank tenderness Skin: Normal capillary refill, no rash Neuro: Normal speech and cognition, normal gait, A&O x3 Initial Vital Signs Initial Vital Signs: Vital Signs Temperature 98.5 F 08/27/21 17:16 Pulse Rate 89 08/27/21 17:16 Respiratory Rate 08/27/21 17:16 Blood Pressure 134/73 08/27/21 17:16 Pulse Oximetry 99 08/27/21 17:16 <Remi Lennon DO - Last Filed: 09/01/21 07:02> Initial Vital Signs Initial Vital Signs: Vital Signs Temperature 98.5 F 08/27/21 17:16 Pulse Rate 89 08/27/21 17:16 Respiratory Rate 08/27/21 17:16 Blood Pressure 134/73 08/27/21 17:16 Pulse Oximetry 99 08/27/21 17:16 Course <ROSE Barragan - Last Filed: 08/27/21 20:53> Orders Ordered: ED Orders 08/27/21 17:21 EKG-12 Lead Stat 08/27/21 17:35 Complete Blood Count AUTO DIFF Stat Comprehensive Metabolic Panel Stat Lipase Stat 08/27/21 18:27 Test Urine Stat UA Complete [Urinalysis and Microscopic] Stat Vital Signs Vital signs: Vital Signs - 8 hr 08/27/21 17:16 08/27/21 18:24 08/27/21 18:25 Temperature 98.5 F Pulse Rate 89 84 84 Respiratory Rate 20 Blood Pressure 134/73 114/64 Pulse Oximetry 99 100 100 08/27/21 18:30 08/27/21 19:00 08/27/21 19:01 Temperature Pulse Rate 82 78 85 Respiratory Rate Blood Pressure 116/62 115/57 L Pulse Oximetry 100 100 99 08/27/21 19:30 08/27/21 20:00 08/27/21 20:01 Temperature Pulse Rate 82 82 82 Respiratory Rate Blood Pressure 126/67 113/63 Pulse Oximetry 100 99 100 <Remi Lennon DO - Last Filed: 09/01/21 07:02> Orders Ordered: ED Orders 08/27/21 17:21 EKG-12 Lead Stat 08/27/21 17:35 Complete Blood Count AUTO DIFF Stat Comprehensive Metabolic Panel Stat Lipase Stat 08/27/21 18:27 Test Urine Stat UA Complete [Urinalysis and Microscopic] Stat Vital Signs Vital signs: Vital Signs - 8 hr 08/27/21 17:16 08/27/21 18:24 08/27/21 18:25 Temperature 98.5 F Pulse Rate 89 84 84 Respiratory Rate 20 Blood Pressure 134/73 114/64 Pulse Oximetry 99 100 100 08/27/21 18:30 08/27/21 19:00 08/27/21 19:01 Temperature Pulse Rate 82 78 85 Respiratory Rate Blood Pressure 116/62 115/57 L Pulse Oximetry 100 100 99 08/27/21 19:30 08/27/21 20:00 08/27/21 20:01 Temperature Pulse Rate 82 82 82 Respiratory Rate Blood Pressure 126/67 113/63 Pulse Oximetry 100 99 100 MDM - Abdominal Pain <ROSE Barragan Last Filed: 01/27/22 20:53> Lab Data Result diagrams: 08/27/21 17:35 08/27/21 17:35 Labs: Lab Results 08/27/21 08/27/21 08/27/21 Range/Units 17:35 17:35 18:27 WBC 9.8 (4.5-11.0) X10^3/uL RBC 4.80 (4.0-5.2) X10^6/uL Hgb 13.6 (12.0-16.0) g/dL Hct 39.1 (36-46) % MCV 81.6 (80-100) fL MCH 28.3 (26-34) PG MCHC 34.6 (30-36) % RDW 13.4 (11.6-14.8) % Plt Count 285 (150-400) X10^3/uL Neut % (Auto) 63.7 (50-75) % Lymph % (Auto) 28.7 (25-40) % [place] % (Auto) 5.7 (3-14) % Eos % (Auto) 1.1 L (2-4) % Baso % (Auto) 0.8 (0-2) % Neut # (Auto) 6200 (1714-6825) /uL Lymph # (Auto) 2800 (5589-6799) /uL [place] # (Auto) 600 (0-900) /uL Eos # (Auto) 100 (0-450) /uL Baso # (Auto) 100 (0-100) /uL Sodium 137 (137-145) mmol/L Potassium 3.8 (3.4-5.1) mmol/L Chloride 101 (98-107) mmol/L Carbon Dioxide 28 (22-32) mmol/L BUN 10 (7-17) mg/dL Creatinine 0.58 (0.52-1.04) mg/dL Estimated GFR > 60.0 (>60) mL/min BUN/Creatinine Ratio 17.2 (6-22) Glucose 116 H (70-100) mg/dL Calcium 9.7 (8.4-10.2) mg/dL Total Bilirubin 0.8 (0.2-1.3) mg/dL AST 53 H (14-36) IU/L ALT 62 H (<35) IU/L Alkaline Phosphatase 68 (38-126) U/L Total Protein 8.4 H (6.3-8.2) g/dL Albumin 4.5 (3.5-5.0) g/dL Globulin 3.9 (1.7-4.1) g/dL Albumin/Globulin Ratio 1.2 (1.0-2.8) Lipase 76 (23-300) U/L Urine Color Urine Appearance Urine pH (4.5-8.0) Ur Specific [place] (1.000-1.035) Urine Protein (Negative) Urine Glucose (UA) (Negative) g/dL Urine Ketones (NEGATIVE) Urine Occult Blood (Negative) Urine Nitrate (Negative) Urine Bilirubin (NEGATIVE) Urine Urobilinogen (0.2) E.U./dL Ur Leukocyte Esterase (NEGATIVE) Urine RBC (0-5/HPF) Urine WBC (0-5/HPF) Ur Squamous Epith Cells (0-5/HPF) Urine Bacteria (None) Ur Culture Indicated? Urine Test Negative (Negative) 08/27/21 Range/Units 18:27 WBC (4.5-11.0) X10^3/uL RBC (4.0-5.2) X10^6/uL Hgb (12.0-16.0) g/dL Hct (36-46) % MCV (80-100) fL MCH (26-34) PG MCHC (30-36) % RDW (11.6-14.8) % Plt Count (150-400) X10^3/uL Neut % (Auto) (50-75) % Lymph % (Auto) (25-40) % [place] % (Auto) (3-14) % Eos % (Auto) (2-4) % Baso % (Auto) (0-2) % Neut # (Auto) (2866-3403) /uL Lymph # (Auto) (7497-6383) /uL [place] # (Auto) (0-900) /uL Eos # (Auto) (0-450) /uL Baso # (Auto) (0-100) /uL Sodium (137-145) mmol/L Potassium (3.4-5.1) mmol/L Chloride (98-107) mmol/L Carbon Dioxide (22-32) mmol/L BUN (7-17) mg/dL Creatinine (0.52-1.04) mg/dL Estimated GFR (>60) mL/min BUN/Creatinine Ratio (6-22) Glucose (70-100) mg/dL Calcium (8.4-10.2) mg/dL Total Bilirubin (0.2-1.3) mg/dL AST (14-36) IU/L ALT (<35) IU/L Alkaline Phosphatase (38-126) U/L Total Protein (6.3-8.2) g/dL Albumin (3.5-5.0) g/dL Globulin (1.7-4.1) g/dL Albumin/Globulin Ratio (1.0-2.8) Lipase (23-300) U/L Urine Color Yellow Urine Appearance Clear Urine pH 6.0 (4.5-8.0) Ur Specific [place] 1.015 (1.000-1.035) Urine Protein Negative (Negative) Urine Glucose (UA) Negative (Negative) g/dL Urine Ketones Trace H (NEGATIVE) Urine Occult Blood 1+ H (Negative) Urine Nitrate Negative (Negative) Urine Bilirubin Negative (NEGATIVE) Urine Urobilinogen 0.2 (0.2) E.U./dL Ur Leukocyte Esterase Negative (NEGATIVE) Urine RBC 1-5/hpf (0-5/HPF) Urine WBC 0-1/hpf (0-5/HPF) Ur Squamous Epith Cells 1-5 /hpf (0-5/HPF) Urine Bacteria Few (2-10) H (None) Ur Culture Indicated? Cult not indicated Urine Test (Negative) Point of care testing: Urine Dip Bedside Urine Glucose Negative Bedside Urine Bilirubin - Negative Bedside Urine Ketone - Negative Urine Specific [place] 1.015 Bedside Urine Occult Blood +/- Bedside Urine pH 6.0 Bedside Urine Protein - Negative Bedside Urine Urobilinogen - Negative Bedside Urine Nitrite - Negative Bedside Urine Leukocytes - Negative Esterase MDM Narrative Medical decision making narrative: Female presents to the emergency department for intermittent right lower breast pain which has been present for approximately 2 days. Patient states she desires and has been having irregular menses for the last 2 cycles. She states she is overdue by 2 days. test today was negative. Patient has been afebrile without nausea vomiting, abdominal pain, abnormal stool or dysuria. She currently is pain-free. Lab work today was overall unremarkable except for mildly elevated AST at 53 ALT is 62. Lipase was normal at 76. UA showed trace ketones, trace of blood, few bacteria, she denied dysuria, this was not cultured or treated with antibiotics. My suspicion is that this patient has PCOS, she has an upcoming transvaginal ultrasound on September 01. She denies any abdominal pain, nausea vomiting, or any pain relation to food. She was nontender over right upper quadrant. Discussed a low-fat diet, low sugar diet and to monitor her symptoms and follow up with her primary care provider at her upcoming appointment. I recommend a right upper quadrant ultrasound scheduled as an outpatient. Patient had recently eaten in did not have pain today so an emergent right upper quadrant ultrasound was not indicated. Differential includes gallstones, breast pain with relation to her menses cycle, PCOS, pancreatitis, pyelonephritis, renal calculi, UTI, appendicitis. Patient is appropriate and amenable to discharge home. Vital signs are stable on repeat examination is unremarkable. Patient has been informed of results. Patient has been given strict return to ER precautions for any new or worsening symptoms. Patient understands to follow up closely with outpatient providers as instructed. Patient understands plan and agrees to discharge home. All questions and concerns answered at this time. <Remi Lennon, DO - Last Filed: 09/01/21 07:02> Lab Data Labs: Lab Results 08/27/21 08/27/21 08/27/21 Range/Units 17:35 17:35 18:27 WBC 9.8 (4.5-11.0) X10^3/uL RBC 4.80 (4.0-5.2) X10^6/uL Hgb 13.6 (12.0-16.0) g/dL Hct 39.1 (36-46) % MCV 81.6 (80-100) fL MCH 28.3 (26-34) PG MCHC 34.6 (30-36) % RDW 13.4 (11.6-14.8) % Plt Count 285 (150-400) X10^3/uL Neut % (Auto) 63.7 (50-75) % Lymph % (Auto) 28.7 (25-40) % [place] % (Auto) 5.7 (3-14) % Eos % (Auto) 1.1 L (2-4) % Baso % (Auto) 0.8 (0-2) % Neut # (Auto) 6200 (1312-7916) /uL Lymph # (Auto) 2800 (1786-6590) /uL [place] # (Auto) 600 (0-900) /uL Eos # (Auto) 100 (0-450) /uL Baso # (Auto) 100 (0-100) /uL Sodium 137 (137-145) mmol/L Potassium 3.8 (3.4-5.1) mmol/L Chloride 101 (98-107) mmol/L Carbon Dioxide 28 (22-32) mmol/L BUN 10 (7-17) mg/dL Creatinine 0.58 (0.52-1.04) mg/dL Estimated GFR > 60.0 (>60) mL/min BUN/Creatinine Ratio 17.2 (6-22) Glucose 116 H (70-100) mg/dL Calcium 9.7 (8.4-10.2) mg/dL Total Bilirubin 0.8 (0.2-1.3) mg/dL AST 53 H (14-36) IU/L ALT 62 H (<35) IU/L Alkaline Phosphatase 68 (38-126) U/L Total Protein 8.4 H (6.3-8.2) g/dL Albumin 4.5 (3.5-5.0) g/dL Globulin 3.9 (1.7-4.1) g/dL Albumin/Globulin Ratio 1.2 (1.0-2.8) Lipase 76 (23-300) U/L Urine Color Urine Appearance Urine pH (4.5-8.0) Ur Specific [place] (1.000-1.035) Urine Protein (Negative) Urine Glucose (UA) (Negative) g/dL Urine Ketones (NEGATIVE) Urine Occult Blood (Negative) Urine Nitrate (Negative) Urine Bilirubin (NEGATIVE) Urine Urobilinogen (0.2) E.U./dL Ur Leukocyte Esterase (NEGATIVE) Urine RBC (0-5/HPF) Urine WBC (0-5/HPF) Ur Squamous Epith Cells (0-5/HPF) Urine Bacteria (None) Ur Culture Indicated? Urine Test Negative (Negative) 08/27/21 Range/Units 18:27 WBC (4.5-11.0) X10^3/uL RBC (4.0-5.2) X10^6/uL Hgb (12.0-16.0) g/dL Hct (36-46) % MCV (80-100) fL MCH (26-34) PG MCHC (30-36) % RDW (11.6-14.8) % Plt Count (150-400) X10^3/uL Neut % (Auto) (50-75) % Lymph % (Auto) (25-40) % [place] % (Auto) (3-14) % Eos % (Auto) (2-4) % Baso % (Auto) (0-2) % Neut # (Auto) (6249-3452) /uL Lymph # (Auto) (7517-9290) /uL [place] # (Auto) (0-900) /uL Eos # (Auto) (0-450) /uL Baso # (Auto) (0-100) /uL Sodium (137-145) mmol/L Potassium (3.4-5.1) mmol/L Chloride (98-107) mmol/L Carbon Dioxide (22-32) mmol/L BUN (7-17) mg/dL Creatinine (0.52-1.04) mg/dL Estimated GFR (>60) mL/min BUN/Creatinine Ratio (6-22) Glucose (70-100) mg/dL Calcium (8.4-10.2) mg/dL Total Bilirubin (0.2-1.3) mg/dL AST (14-36) IU/L ALT (<35) IU/L Alkaline Phosphatase (38-126) U/L Total Protein (6.3-8.2) g/dL Albumin (3.5-5.0) g/dL Globulin (1.7-4.1) g/dL Albumin/Globulin Ratio (1.0-2.8) Lipase (23-300) U/L Urine Color Yellow Urine Appearance Clear Urine pH 6.0 (4.5-8.0) Ur Specific [place] 1.015 (1.000-1.035) Urine Protein Negative (Negative) Urine Glucose (UA) Negative (Negative) g/dL Urine Ketones Trace H (NEGATIVE) Urine Occult Blood 1+ H (Negative) Urine Nitrate Negative (Negative) Urine Bilirubin Negative (NEGATIVE) Urine Urobilinogen 0.2 (0.2) E.U./dL Ur Leukocyte Esterase Negative (NEGATIVE) Urine RBC 1-5/hpf (0-5/HPF) Urine WBC 0-1/hpf (0-5/HPF) Ur Squamous Epith Cells 1-5 /hpf (0-5/HPF) Urine Bacteria Few (2-10) H (None) Ur Culture Indicated? Cult not indicated Urine Test (Negative) Point of care testing: Urine Dip Bedside Urine Glucose Negative Bedside Urine Bilirubin - Negative Bedside Urine Ketone - Negative Urine Specific [place] 1.015 Bedside Urine Occult Blood +/- Bedside Urine pH 6.0 Bedside Urine Protein - Negative Bedside Urine Urobilinogen - Negative Bedside Urine Nitrite - Negative Bedside Urine Leukocytes - Negative Esterase Discharge Plan Departure Patient Disposition: Home Clinical Impression: Rib pain on right side, Irregular menses Instructions: Polycystic Ovary Syndrome, DI for Gallstones Activity Restrictions/Additional Instructions: *You have been diagnosed with an irregular menses and right breast pain. Today your lab work is reassuring that there is not a surgical or emergent cause for your symptom. Please follow-up with your primary care provider about this pain if it continues, I suggest a right upper quadrant ultrasound to evaluate for gallstones. Your lipase was not elevated, your liver enzymes are mildly elevated above baseline but currently you do not have any pain, fever, nausea vomiting so I recommend following up with your primary care provider about this. Please take ibuprofen every 6 hours as needed for your pain. Please eat a low- fat diet in case this is gallstones to see if that helps improve your pain. Go to your ultrasound and follow-up with your primary care provider if you get PCOS. She may have good recommendations for you. It is helpful to keep your blood sugar levels down and avoid sugars and carbs when you can in eat a balanced diet. This may help you ovulate as well. Wishing you luck and fertility. *What to do: *Please continue to take your regular medications as directed. [ ] New medication prescriptions sent to your pharmacy: [ ] [ ] New medication written as a paper prescription [x ] No new medications given *Please follow up with your primary care provider in 2-3 days, call for an appointment. Let them know you were seen in the Emergency Department and that we ask that you be seen in follow up. We will electronically transmit a record of today's note if your PCP is in our system *If you do not have a primary care provider please contact the [facility] Resource line at [phone]. They will ask some questions about your medical history and help get you set up with a doctor in the community. *Return to Emergency Department if you should have any new, worsening or concerning symptoms, such as [fever greater than 101F, chills, worsening pain, persistent vomiting or other bothersome symptoms] Prescriptions: No Action No Known Home Medications 0RF Referrals: Ynes Baldiwn MD [Physician] - 7-10 days Aidan Lees ARNP [Primary Care Provider] - <Remi Lennon DO - Last Filed: 09/01/21 07:02> Cosign ED Attending [facility] Attestation: Dr Lennon Co-Sign Statement: I was available for consultation during this patient's emergency department visit. This chart is signed by myself for administrative purposes only. I did not have direct contact with this patient during this visit. They were seen independently by the APC.
--- NOTE | 2021-08-27 18:38 | PC.NURSE ---
Pt states funny feeling under right breast x 3 days. Pain 2.5/10. Her family told her it might be a gallbladder issue and someone mentioned it might be PCOS. Pt states she is trying to get . Denies N/V/D/fever.
[2021-08-27 18:56] LABS: Appearance Urine UA CLEAR; Bilirubin Urine UA NEGATIVE (NEGATIVE); Color Urine UA YELLOW; Glucose Urine UA NEGATIVE (Negative); Ketones Urine UA TRACE (NEGATIVE); Leukocyte Esterase Urine UA NEGATIVE (NEGATIVE); Nitrite Urine UA NEGATIVE (Negative); Occult Blood Urine UA 1+ (Negative); Protein Urine UA NEGATIVE (Negative); Specific Gravity Urine UA 1.015 (1.000-1.035); Urobilinogen Urine UA 0.2 E.U./dL (0.2)
[2021-08-27 18:58] LABS: Pregnancy Test Urine Negative (Negative)
[2021-08-27 19:29] LABS: RBC Urine 1-5/HPF (0-5/HPF); WBC Urine 0-1/HPF (0-5/HPF)
[2021-08-27 19:30] LABS: Bacteria Urine Few (2-10); Culture Indicated Urine Cult Not Indicated; Squamous Epithelial Cell Urine 1-5 /HPF (0-5/HPF)
== END 2021-08-27 20:18 | disposition home or self-care (01) ==
PROVIDERS: Emergency Medicine; Emergency Provider Nurse Practitioner Critical Care Medicine; Family Provider Internal Medicine; PCP Registered Nurse Diabetes Educator
DX: R07.81 Pleurodynia (principal); N92.6 Irregular menstruation, unspecified
CPT/HCPCS: 36415; 80053; 81001; 81003; 81025; 83690; 85025; 93005; 99283; 99284

== ENCOUNTER → 2021-09-01 09:06 | Outpatient (CLI) | payer OTHER, SELFPAY ==
--- NOTE | 2021-09-01 09:09 | DI.US.S_ITS ---
PROCEDURE: US PELVIC COMPLETE INDICATIONS: INFERTILITY TECHNIQUE: Real-time scanning was performed of the pelvic organs, with image documentation. Additional endovaginal scanning was necessary due to incomplete visualization of the adnexal and endometrial structures by transabdominal scanning. COMPARISON: None. FINDINGS: This study is limited by body habitus. Uterus: Uterus is anteverted and normal in size at 7.7 x 4.8 x 3.3 cm. The myometrium is homogeneous. The endometrium measures 9 mm combined thickness. Incidental note is made of nabothian cysts. There is a small amount of fluid seen within the cervical canal. Ovaries: The right ovary measures 4.4 x 4.5 x 2.2 cm, with a calculated ovarian volume of 22.8 cc. The left ovary measures 4.4 x 3.1 x 2.7 cm, with a calculated ovarian volume of 19.3 cc. The ovaries have a normal sonographic appearance, with a dominant follicle seen involving the right ovary, which is considered to within physiologic limits. Less than 12 follicles can be seen in each ovary. No adnexal masses are seen. Other: No pathologic free abdominal or pelvic fluid. IMPRESSION: No significant pelvic ultrasound abnormality is seen to explain infertility. We strive to produce accurate, complete, and clear reports of imaging services. To assist us in improving patient care, this report was composed using standard report templates and voice recognition software. Therefore, it may contain abnormal punctuation, insertions and/or omissions. Occasional wrong-word or sound-alike substitutions may occur. Though we review the report and make efforts to correct it, we do recommend that the report be read carefully in proper context to recognize any text inaccuracies. Dictated by: Wilfrido Shaver M.D. on 09/01/2021 at 8:43 Approved by: Wilfrido Shaver M.D. on 09/01/2021 at 8:44
== END ==
PROVIDERS: Family Provider Internal Medicine; PCP Registered Nurse Diabetes Educator; Referring Provider Obstetrics & Gynecology; Visit Provider Obstetrics & Gynecology
DX: Z31.9 Encounter for procreative management, unspecified (principal); N97.9 Female infertility, unspecified
CPT/HCPCS: 76830; 76856

== ENCOUNTER → 2021-09-18 13:03 | Outpatient (CLI) | payer OTHER, SELFPAY ==
[2021-09-18 15:18] LABS: Hemoglobin A1C% w Est Avg Glu 5.7 % (4.0-6.0)
[2021-09-18 15:58] LABS: Follicle Stimulating Hormone 5.37 mIU/mL
[2021-09-18 16:05] LABS: Free T4, Direct Thyroxine 1.26 ng/dL (0.78-2.19)
[2021-09-18 16:19] LABS: Thyroid Stimulating Hormone 1.34 uIU/mL (0.47-4.68)
[2021-09-18 17:16] LABS: Prolactin 23.4 ng/mL (3.0-18.6)
[2021-09-19 08:35] LABS: Varicella IgG Antibody 2234 index (Immune >165)
[2021-09-22 12:11] LABS: Estrogen 669 pg/mL (.)
== END ==
PROVIDERS: Obstetrics & Gynecology; Family Provider Internal Medicine; PCP Registered Nurse Diabetes Educator; Referring Provider Registered Nurse Diabetes Educator; Visit Provider Registered Nurse Diabetes Educator
DX: N97.9 Female infertility, unspecified (principal)
CPT/HCPCS: 36415; 82672; 83001; 83036; 84146; 84439; 84443; 86735; 86762; 86765; 86787

== ENCOUNTER → 2021-10-06 09:03 | Outpatient (CLI) | payer OTHER, SELFPAY ==
--- NOTE | 2021-10-06 09:12 | DIET.CONS ---
Dietary Consultation Note Assessment: 25y F [address] visit for help losing weight, pt currently being worked up for PCOS and NAFLD, has preDM with A1c 5.7. Pt would like to lose 50# to help her with infertility. Pt desires to try keto-type diet to help with early weight loss then transition into general healthy eating plan. Wt/Eating Hx: Pt always in a bigger body, lived with parents who worked, they didn't care what she ate, only that she did eat, grandma came over and made many meals. Was in soccer and cheerleading. Was last under 200# six years ago when 19yo, feels she is actively gaining weight right now, going up in pant size. Feels biggest contributor to weight gain is eating out fast-food rather than eating at home. 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 Lives with fiance and two kids (7 and 6yo), partner got gall bladder out so trying to eat healthier as a family. Family dinners only really happen on weekends, usually Tuesday. 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 Interventions: 1. Educated pt on added sugar in her diet, sources generally sugar-sweetened beverages- was doing large Starbucks white mocha daily (60g sugar), large sweet iced tea (40g sugar), and sometimes horchata, consuming four times the added sugar which her body could process healthfully. Pt has cut out Starbucks and will switch to unsweet iced tea. 2. Collaborated c pt on meal plan to try keto diet to see if helpful for her weight loss efforts. Plan: B: coffee c SF cream, egg bites or omelet or yogurt L: pt will batch cook two keto meals weekly on Tuesday to bring to work instead of eating out Sn: Premier Protein drink plus hb egg or yogurt or cheese stick (depending on breakfast). Monitoring/Evaluations: telehealth f/u in 3 weeks to assess progress and problem solve barriers. Electronically Signed by: Uma Hong 10/06/21 09:[address] [address]
== END ==
PROVIDERS: Family Provider Internal Medicine; PCP Registered Nurse Diabetes Educator; Referring Provider Registered Nurse Diabetes Educator; Visit Provider Registered Nurse Diabetes Educator
DX: R73.03 Prediabetes (principal); E28.2 Polycystic ovarian syndrome; K76.0 Fatty (change of) liver, not elsewhere classified
CPT/HCPCS: 97802

== ENCOUNTER → 2022-02-09 17:23 | Outpatient (CLI) | payer OTHER, SELFPAY ==
[2022-02-09 19:03] LABS: Progesterone, Total 3.39 ng/mL
[2022-02-11 04:22] LABS: Prolactin 27.9 ng/mL (3.0-18.6)
[2022-02-11 05:23] LABS: Hemoglobin A1C% w Est Avg Glu 5.6 % (4.0-6.0)
== END ==
PROVIDERS: Family Provider Internal Medicine; PCP Registered Nurse Diabetes Educator; Referring Provider Obstetrics & Gynecology; Visit Provider Obstetrics & Gynecology
DX: N92.6 Irregular menstruation, unspecified (principal)
CPT/HCPCS: 36415; 83036; 84144; 84146

== ENCOUNTER → 2022-02-26 11:38 | Outpatient (CLI) | payer OTHER, SELFPAY ==
--- NOTE | 2022-02-26 | DI.MRI.S_ITS ---
PROCEDURE: MR BRAIN (PITUITARY) WWO CON INDICATIONS: ELEVATED PROLACTIN TECHNIQUE: Noncontrast sagittal and axial FLAIR, axial gradient echo, axial diffusion and ADC through the brain. Thin-slice sagittal and coronal T1 spin echo, coronal T2 fast spin echo through the pituitary. After the administration contrast, optional dynamic coronal T1 spin echo, thin-slice coronal and sagittal T1 spin echo images through the pituitary fossa; axial and coronal and sagittal T1 spin echo with fat saturation through the brain. COMPARISON: None. FINDINGS: Image quality: Excellent. Pituitary Gland: The pituitary gland demonstrates normal signal and bulk. On the postcontrast imaging, no masses or abnormally enhancing areas are seen. The pituitary stalk and infundibulum have an unremarkable appearance. A normal appearing pituitary bright spot is seen posteriorly on the precontrast sagittal T1-weighted images. The optic chiasm and the ventral forebrain have an unremarkable appearance. CSF Spaces: Ventricles are normal in size and shape. Basal cisterns are patent. No extra-axial fluid collections. Brain: No intracranial bleeds or mass effects. No abnormal intracranial enhancement. Beck-white matter interface is intact. Diffusion weighted images demonstrate no acute ischemic insults. Brainstem is normal. Normal intravascular flow voids are present. Skull and face: Calvarial marrow is normal in signal. Orbits appear normal. Sinuses: Sinuses and mastoids are clear. IMPRESSION: No significant pituitary abnormality is seen to explain the patient's presentation. Dictated by: Wilfrido Shaver M.D. on 02/26/2022 at 12:07 Approved by: Wilfrido Shaver M.D. on 02/26/2022 at 12:09
== END ==
PROVIDERS: Family Provider Internal Medicine; PCP Registered Nurse Diabetes Educator; Referring Provider Obstetrics & Gynecology; Visit Provider Obstetrics & Gynecology
DX: R79.89 Other specified abnormal findings of blood chemistry
CPT/HCPCS: 70553; A9579

== ENCOUNTER 2022-05-13 19:29 | Emergency (ER) | payer OTHER, SELFPAY ==
[2022-05-13 19:35] VITALS: BP 140/73; PULSE 90; RESP 18; TEMP 36.6; O2SAT 96
--- NOTE | 2022-05-13 19:44 | DI.RAD.S_ITS ---
PROCEDURE: XR WRIST RT MIN 3V INDICATIONS: twisted it. TECHNIQUE: 4 views of the wrist were acquired. COMPARISON: None. FINDINGS: Bones: No fractures or dislocations. No suspicious bony lesions. Scaphoid view: The scaphoid appears intact. Soft tissues: No suspicious soft tissue calcifications. IMPRESSION: 1. No fracture or dislocation. Dictated by: Paxton Balderrama M.D. on 05/13/2022 at 21:34 Approved by: Paxton Balderrama M.D. on 05/13/2022 at 21:35
--- NOTE | 2022-05-13 20:27 | ED.UPPEXIN ---
HPI - Extremity Injury (Upper) General Chief Complaint: Extremity Injury, Upper Stated Complaint: twisted rt wrist Time Seen by Provider: 05/13/22 19:49 Source: patient Mode of arrival: Ambulatory History of Present Illness HPI narrative: 26-year-old female nonsmoker with noncontributory medical history presents for evaluation of a right wrist injury suffered while at work just prior to arrival. 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 She has full but painful range of motion of the wrist and denies any numbness, tingling or weakness. She denies any direct trauma and did not fall. She has no pain in her elbow or shoulder. She is otherwise well and free of complaint Related Data Previous Rx's Medication Instructions Recorded ondansetron HCl 4 mg tablet 4 mg PO Q8H PRN nausea and 01/05/22 vomiting #10 tabs sumatriptan succinate 50 mg tablet See Rx Instructions PO .COMPLEX 01/05/22 #10 tabs cabergoline 0.5 mg tablet 0.25 mg PO 2XW #8 tabs 04/01/22 Allergies Allergy/AdvReac Type Severity Reaction Status Date / Time No Known Drug Allergies Allergy Verified 02/09/22 10:44 Review of Systems Review of Systems Narrative: GENERAL: Denies chills, fatigue, malaise, fever, sweats. HEENT: Denies sinus pain, ear pain, sore throat, difficulty swallowing, dizziness. RESPIRATORY: Denies dyspnea, cough, wheezing, hemoptysis, sputum. CARDIOVASCULAR: Denies chest pain, palpitations, orthopnea, edema, GASTROINTESTINAL: Denies nausea, vomiting, abdominal pain, diarrhea, constipation, melena. : Denies dysuria, frequency, incontinence, hematuria, urinary retention. MUSCULOSKELETAL: See HPI SKIN: Denies rash, skin lesions, or other NEUROLOGIC: Denies weakness, headache, numbness, change in speech, confusion, seizures, incoordination. PSYCHIATRIC: No concerning psychosocial issues. 12 point review of systems is negative except for those stated above Patient History Medical History (Updated 05/13/22 @ 20:35 by Cristofer Farr DO) No active medical problems Patient desires Well woman exam Surgical History No pertinent past surgical history Social History Smoking Status: Never smoker Smoking Status: Never smoker alcohol intake frequency: a few times a month Substance Use Type: does not use Exam Narrative Exam Narrative: GEN: AOx3 and in mild distress EYES: Pupils are equal, round, and reactive to light and accommodation. Extraoccular muscles are intact bilaterally. There is no subconjunctival hemorrhage or exudate. CHEST: Lungs are clear to auscultation bilaterally and free of wheezes, rales, or rhonchi. Heart rate is regular rhythm, there are no murmurs, clicks, rubs, or gallops. There is no chest wall tenderness. ABD: Abdomen is soft and nontender. There is no guarding or rebound. Bowel sounds are normal in all 4 quadrants. There is no mass or organomegaly. EXT: Full but painful range of motion of the right wrist with pain on ulnar deviation of the wrist, no pain with axial loading of the thumb or in the anatomic snuffbox. This is closed, isolated and neurovascularly intact SKIN: Warm, pink, and dry. No erythema or rash Initial Vital Signs Initial Vital Signs: Vital Signs Temperature 98 F 05/13/22 19:35 Pulse Rate 90 05/13/22 19:35 Respiratory Rate 18 05/13/22 19:35 Blood Pressure 140/73 05/13/22 19:35 Pulse Oximetry 96 05/13/22 19:35 Oxygen Delivery Method 05/13/22 19:35 Procedures Orthopedic Splinting/Casting Injury #1: Side: right Upper Extremity Injury Location: wrist Upper Extremity Immobilizer: wrist splint Post splinting neuro exam: intact Post splinting vascular exam: intact Placed by: Nursing Course Orders Ordered: ED Orders 05/13/22 19:44 XR wrist RT min 3V Stat Vital Signs Vital signs: Vital Signs - 8 hr 05/13/22 19:35 Temperature 98 F Pulse Rate 90 Respiratory Rate 18 Blood Pressure 140/73 Pulse Oximetry 96 Oxygen Delivery Method Room Air MDM - Extremity Injury (Upper) Imaging Data Extremity x-ray #1: Radiologist's Impression: Close Wrist X-Ray (Signed) Paxton Balderrama - 05/13/22 Brain MRI (Signed) Wilfrido Shaver - 02/26/22 Pelvis Ultrasound (Signed) Wilfrido Shaver - 09/01/21 Launch?Image [address] [address] XRay Report Signed Patient: Chepe Mo MR#: [id number] : 1995 Acct:[id number] Age/Sex: 26 / F Date of Service: 05/13/22 Loc: ED Accession Number: [id number] ?? Procedure: XR wrist RT min 3V Ordering Provider: Cristofer Farr D.O. PROCEDURE:? XR WRIST RT MIN 3V ? INDICATIONS: twisted it. ? TECHNIQUE:? 4 views of the wrist were acquired.? ? COMPARISON:? None. ? FINDINGS:? ? Bones:? No fractures or dislocations.? No suspicious bony lesions.? ? Scaphoid view:? The scaphoid appears intact. ? Soft tissues:? No suspicious soft tissue calcifications.? ? IMPRESSION:? ? 1.? No fracture or dislocation. ? ? Dictated by: Paxton Balderrama M.D. on 05/13/2022 at 21:34 ? ? Approved by: Paxton Balderrama M.D. on 05/13/2022 at 21:35 ? Discharge Plan Departure Patient Disposition: Home Clinical Impression: Right wrist sprain Instructions: DI for Wrist Sprain Activity Restrictions/Additional Instructions: *You have been diagnosed with [right wrist sprain. Your history and physical exam are reassuring and there is no evidence of fracture or dislocation] *What to do: *Please continue to take your regular medications as directed. [ ] New medication prescriptions sent to your pharmacy: [ ] [ ] New medication written as a paper prescription [ ] No new medications given *Please follow up with your primary care provider in 2-3 days, call for an appointment. Let them know you were seen in the Emergency Department and that we ask that you be seen in follow up. We will electronically transmit a record of today's note if your PCP is in our system *If you do not have a primary care provider please contact the [facility] Resource line at [phone]. They will ask some questions about your medical history and help get you set up with a doctor in the community. *Return to Emergency Department if you should have any new, worsening or concerning symptoms, such as [fever greater than 101 F, shaking chills, worsening pain, persistent vomiting or other bothersome symptoms] Prescriptions: No Action cabergoline 0.5 mg tablet 0.25 mg PO 2XW Qty: 8 3RF Rx Instructions: take in the evening or bedtime sumatriptan succinate 50 mg tablet See Rx Instructions PO .COMPLEX Qty: 10 3RF Rx Instructions: take 1 tab at onset of headache; if no relief may repeat 1 tab after at least 2 hrs; max = 4 tabs/24 hr PO ondansetron HCl 4 mg tablet 4 mg PO Q8H PRN (Reason: nausea and vomiting) Qty: 10 1RF Referrals: Aidan Lees ARNP [Primary Care Provider] - Stand Alone Forms: Work Release Note Visit Report Forms: Patient Portal/API
== END 2022-05-13 21:35 | disposition home or self-care (01) ==
PROVIDERS: Emergency Provider Emergency Medicine; Family Provider Internal Medicine; PCP Registered Nurse Diabetes Educator
DX: S63.501A Unspecified sprain of right wrist, initial encounter (principal); X50.1XXA Overexertion from prolonged static or awkward postures, initial encounter; Y93.F2 Activity, caregiving, lifting; Y99.0 Civilian activity done for income or pay
CPT/HCPCS: 73110; 99282; 99283

== ENCOUNTER 2023-03-14 15:21 | Emergency (ER) | payer OTHER, SELFPAY ==
[2023-03-14 16:01] VITALS: BP 145/63; PULSE 79; RESP 18; TEMP 37.1; O2SAT 99; BMI 47.5
--- NOTE | 2023-03-14 16:25 | DI.US.S_ITS ---
PROCEDURE: US OB <= 14 WEEKS FETUS INDICATIONS: RIGHT UPPER QUADRANT RIB PAIN. . OUTSIDE/PRIOR DATING DATA: Last menstrual period (LMP): 01/11/2023 LMP-based estimated date of delivery (SEJAL): 10/18/2023 First dating scan (date and location): 03/14/2023 Estimated date of delivery (SEJAL) from first dating scan: 10/19/2023 TECHNIQUE: Real-time scanning was performed of the fetus and maternal pelvic organs, with image documentation. Endovaginal scanning was also performed to better visualize the fetus and maternal ovaries. COMPARISON: None. FINDINGS: Embryo: Intrauterine gestational sac is seen with pole. Industry-rump length is 2.1 cm, compatible with an estimated gestational age of 8 weeks 5 days. Heart rate: 180 beats per minute Maternal organs: A probable right ovarian corpus luteum cyst is seen. No suspicious adnexal mass. IMPRESSION: Single live intrauterine is seen. size is concordant with clinical dates. We strive to produce accurate, complete, and clear reports of imaging services. To assist us in improving patient care, this report was composed using standard report templates and voice recognition software. Therefore, it may contain abnormal punctuation, insertions and/or omissions. Occasional wrong-word or sound-alike substitutions may occur. Though we review the report and make efforts to correct it, we do recommend that the report be read carefully in proper context to recognize any text inaccuracies. Approved by: Asael Flood M.D. on 03/14/2023 at 17:13
[2023-03-14 17:59] VITALS: BP 118/63; PULSE 67; RESP 18; O2SAT 100
--- NOTE | 2023-03-14 18:35 | ED_ITS ---
HPI - <Alfred Coughlin PA-C - Last Filed: 03/14/23 18:49> General Chief complaint: Urogenital-Female Stated complaint: 9 wks /rib pain/uti Time Seen by Provider: 03/14/23 17:29 Source: patient Mode of arrival: Ambulatory History of Present Illness HPI Narrative: 27-year-old female presents to the ED with right-sided rib pain and urinary frequency, urinary urgency. Patient states she was diagnosed with a UTI a few days ago, prescribed antibiotics which she has taken as prescribed. Patient denies dysuria, hematuria, vaginal bleeding, vaginal discharge, pelvic cramping, flank pain, lightheadedness, dizziness, syncope. Patient states that she has had this right-sided rib pain for several months, was even seen at the ED for the same. 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 The rib pain is aggravated by movement and leaning back, laying on the side. No inspiratory pain. Related Data Previous Rx's Medication Instructions Recorded ondansetron HCl 4 mg tablet 4 mg PO Q8H PRN nausea and 01/05/22 vomiting #10 tabs sumatriptan succinate 50 mg tablet See Rx Instructions PO .COMPLEX 01/05/22 #10 tabs cabergoline 0.5 mg tablet 0.25 mg PO 2XW #8 tabs 04/01/22 Allergies Allergy/AdvReac Type Severity Reaction Status Date / Time No Known Drug Allergies Allergy Verified 03/14/23 16:01 Review of Systems <Alfred Coughlin PA-C - Last Filed: 03/14/23 18:49> Review of Systems ROS Unobtainable: All systems reviewed & are unremarkable except as noted in HPI and below Constitutional Constitutional: Denies chills, Denies fatigue, Denies fever(s), Denies frequent falls, Denies lethargy and Denies weakness Eyes Eyes: Denies change in vision, Denies eye discharge, Denies irritation and Denies loss of vision ENT Ears, Nose, Mouth, and Throat: Denies change in voice, Denies dizziness, Denies neck pain, Denies sore throat and Denies throat swelling Cardiovascular Cardiovascular: Denies chest pain, Denies irregular heart rhythm, Denies lightheadedness, Denies palpitations, Denies dyspnea, Denies dyspnea on exertion and Denies orthopnea Respiratory Respiratory: Denies cough, Denies dyspnea, Denies dyspnea on exertion and Denies wheezing Gastrointestinal Gastrointestinal: Denies abdominal pain, Denies change in bowel habits, Denies diarrhea, Denies nausea and Denies vomiting Genitourinary Genitourinary: Denies hematuria, Denies flank pain, Denies urinary incontinence and Reports urinary urgency Comments: Urinary frequency Musculoskeletal Musculoskeletal: Denies back pain, Denies muscle weakness, Denies neck pain, Denies numbness and Denies tingling Comments: Right-sided rib pain Integumentary/Breasts Skin/Breast: Denies pruritus, Denies erythema, Denies rash and Denies wounds Neurologic Neurologic: Denies behavioral changes, Denies confusion, Denies dizziness, Denies frequent falls, Denies loss of vision, Denies numbness, Denies tingling and Denies weakness Psychiatric Psychiatric: Denies anxiety, Denies behavioral changes, Denies confusion, Denies depression, Denies homicidal ideation and Denies suicidal ideation Endocrine Endocrine: Denies fatigue, Denies flushing and Denies palpitations Hematologic/Lymphatic Hematologic/Lymphatic: Denies easy bruising Allergic/Immunologic Allergic/Immunologic: Denies urticaria, Denies throat swelling and Denies wheezing Exam <Alfred Coughlin PA-C - Last Filed: 03/14/23 18:49> Narrative Exam Narrative: Const General:?cooperative, healthy appearing and comfortable [facility] Head:?normal to inspection Ears:?hearing grossly normal bilaterally Nose:?external nose normal Face and sinus:?normal facial exam and sinuses nontender Mouth:?oral mucosae normal Throat:?posterior oropharynx normal Eyes General:?appearance normal, both eyes and all related structures Neck Neck:?normal visual inspection and no lymphadenopathy noted Resp Effort & Inspection:?normal respiratory effort Auscultation:?clear to auscultation bilaterally Cardio Rate:?regular rate Rhythm:?regular rhythm GI Abdomen is soft, nondistended, nontender to palpation. There is no CVA tenderness. Neuro General:?patient alert, patient awake and patient oriented x3 Initial Vital Signs Initial Vital Signs: Vital Signs Temperature 98.8 F 03/14/23 16:01 Pulse Rate 79 03/14/23 16:01 Respiratory Rate 18 03/14/23 16:01 Blood Pressure 145/63 H 03/14/23 16:01 Pulse Oximetry 99 08/14/23 16:01 Oxygen Delivery Method Room Air 03/14/23 16:01 <DO Manjit Kelly Last Filed: 03/16/23 07:53> Initial Vital Signs Initial Vital Signs: Vital Signs Temperature 98.8 F 03/14/23 16:01 Pulse Rate 79 03/14/23 16:01 Respiratory Rate 18 03/14/23 16:01 Blood Pressure 145/63 H 03/14/23 16:01 Pulse Oximetry 99 03/14/23 16:01 Oxygen Delivery Method Room Air 03/14/23 16:01 Course <Alfred Coughlin PA-C - Last Filed: 03/14/23 18:49> Orders Ordered: Discontinued Medications Ondansetron HCl (Ondansetron 4 Mg Odt) 4 mg SL NOW PRN PRN Reason: Nausea And Vomiting Ondansetron HCl (Ondansetron 4 Mg/2 Ml Inj) 4 mg IV NOW PRN PRN Reason: Nausea And Vomiting Vital Signs Vital signs: Vital Signs - 8 hr 03/14/23 16:01 03/14/23 17:59 Temperature 98.8 F Pulse Rate 79 67 Respiratory Rate 18 18 Blood Pressure 145/63 H 118/63 Pulse Oximetry 99 100 Oxygen Delivery Method Room Air Room Air <DO Manjit Kelly Last Filed: 03/16/23 07:53> Orders Ordered: Discontinued Medications Ondansetron HCl (Ondansetron 4 Mg Odt) 4 mg SL NOW PRN PRN Reason: Nausea And Vomiting Ondansetron HCl (Ondansetron 4 Mg/2 Ml Inj) 4 mg IV NOW PRN PRN Reason: Nausea And Vomiting Vital Signs Vital signs: Vital Signs - 8 hr 03/14/23 16:01 03/14/23 17:59 Temperature 98.8 F Pulse Rate 79 67 Respiratory Rate 18 18 Blood Pressure 145/63 H 118/63 Pulse Oximetry 99 100 Oxygen Delivery Method Room Air Room Air MDM - OB/Uterine Contractions <GEOVANNY Bacon Last Filed: 03/14/23 18:49> Lab Data Labs: Urine Dip Bedside Urine Glucose Negative Bedside Urine Bilirubin - Negative Bedside Urine Ketone +++ 80 Urine Specific [place] 1.015 Bedside Urine Occult Blood - Negative Bedside Urine pH 6.0 Bedside Urine Protein - Negative Bedside Urine Urobilinogen - Negative Bedside Urine Nitrite - Negative Bedside Urine Leukocytes - Negative Esterase MDM Narrative Medical decision making narrative: 27-year-old female presents to the ED with right-sided rib pain and urinary frequency, urinary urgency. UA is negative for a UTI. Ultrasound shows a 8 week 5-day-old single live uterine , which is consistent with patient's LMP of 01/11/2023. Patient's symptoms are most likely consistent with a musculoskeletal etiology. Urinary frequency and urinary urgency could be more related to the resolving UTI versus . Recommend lidocaine patch, Tylenol. Recommend follow-up with OBGYN as soon as possible. Patient is awaiting an appointment with Dr. Pierce. ED return precautions discussed with patient. Patient verbalized understanding. Medical records reviewed: Yes <Karli Gilmore, - Last Filed: 03/16/23 07:53> Lab Data Labs: Urine Dip Bedside Urine Glucose Negative Bedside Urine Bilirubin - Negative Bedside Urine Ketone +++ 80 Urine Specific [place] 1.015 Bedside Urine Occult Blood - Negative Bedside Urine pH 6.0 Bedside Urine Protein - Negative Bedside Urine Urobilinogen - Negative Bedside Urine Nitrite - Negative Bedside Urine Leukocytes - Negative Esterase Discharge Plan Departure Patient Disposition: Home Clinical Impression: Rib pain Instructions: DI for Musculoskeletal Pain Activity Restrictions/Additional Instructions: You were evaluated in the ED today for right-sided rib pain. Your history and physical exam is reassuring in that you have had this pain for several months and that it is reproducible with movements, which makes it most likely that it is a musculoskeletal injury. Your urine today was normal, and it is likely that the antibiotics you on on for the UTI is working. Your ultrasound shows a live intrauterine dating at 8 weeks and 5 days, which is consistent with your last menstrual period. Please follow-up with your OBGYN as soon as possible. Please return to the ED if you have worsening symptoms. Prescriptions: No Action cabergoline 0.5 mg tablet 0.25 mg PO 2XW Qty: 8 3RF Rx Instructions: take in the evening or bedtime sumatriptan succinate 50 mg tablet See Rx Instructions PO .COMPLEX Qty: 10 3RF Rx Instructions: take 1 tab at onset of headache; if no relief may repeat 1 tab after at least 2 hrs; max = 4 tabs/24 hr PO ondansetron HCl 4 mg tablet 4 mg PO Q8H PRN (Reason: nausea and vomiting) Qty: 10 1RF Referrals: Aidan Lees ARNP [Primary Care Provider] - Stand Alone Forms: Patient Portal/API, Work Release Note <Karli Gilmore DO - Last Filed: 03/16/23 07:53> Cosign ED Attending Cosignature Attestation: I was immediately available in the department for consultation. Documentation has been reviewed.
== END 2023-03-14 18:00 | disposition home or self-care (01) ==
PROVIDERS: Emergency Provider Student in an Organized Health Care Education/Training Program; Family Provider Internal Medicine; PCP Registered Nurse Diabetes Educator
DX: O26.91 Pregnancy related conditions, unspecified, first trimester (principal); R07.81 Pleurodynia; Z3A.09 9 weeks gestation of pregnancy
CPT/HCPCS: 76801; 76817; 81003; 99281; 99283

== ENCOUNTER → 2023-04-01 12:43 | Outpatient (CLI) | payer OTHER, SELFPAY ==
[2023-04-01 14:42] LABS: Hemoglobin A1C% w Est Avg Glu 5.1 % (4.0-6.0)
[2023-04-01 14:46] LABS: Add Manual Diff / Slide Review NO; Basophils Absolute Auto 100 /uL (0-100); Basophils Percent Auto 0.8 % (0-2); Eosinophils Absolute Auto 100 /uL (0-450); Eosinophils Percent Auto 0.7 % (2-4); Hematocrit 38.5 % (36-46); Lymphocytes Absolute Auto 1900 /uL (1100-4500); Mean Corpuscular HGB Conc 33.9 % (30-36); Mean Corpuscular Hemoglobin 28.5 PG (26-34); Mean Corpuscular Volume 84.1 fL (80-100); Monocytes Absolute Auto 700 /uL (0-900); Monocytes Percent Auto 8.7 % (3-14); Neutrophils Absolute Auto 5100 /uL (1500-7000); Neutrophils Percent Auto 65.8 % (50-75); Platelet Count 265 X10^3/uL (150-400); Red Blood Cell Count 4.58 X10^6/uL (4.0-5.2); Red Cell Distribution Width 14.1 % (11.6-14.8); White Blood Cell Count 7.7 X10^3/uL (4.5-11.0)
[2023-04-02 03:34] LABS: RPR Screen Non Reactive (Non Reactive)
[2023-04-02 08:09] LABS: Varicella IgG Antibody 3716 index (Immune >165)
[2023-04-05 15:13] LABS: Hepatitis B Surface Antigen NEGATIVE s/c (NEGATIVE)
[2023-04-05 15:28] LABS: HIV 1 & 2 Ab/Ag 4th Gen Combo NEGATIVE (NEGATIVE); Hep C Virus Ab w/Reflex Quant NEGATIVE s/c (NEGATIVE)
== END ==
PROVIDERS: Specialist; Family Provider Internal Medicine; PCP Registered Nurse Diabetes Educator; Referring Provider Obstetrics & Gynecology; Visit Provider Obstetrics & Gynecology
DX: Z34.01 Encounter for supervision of normal first pregnancy, first trimester (principal)
CPT/HCPCS: 36415; 80055; 83036; 86787; 86803; 86850; 86900; 86901; 87086; 87389

== ENCOUNTER → 2023-06-07 12:36 | Outpatient (CLI) | payer OTHER, MEDICAID, SELFPAY ==
--- NOTE | 2023-06-07 12:37 | DI.US.S_ITS ---
PROCEDURE: US OB >= 14 WEEKS FETUS INDICATIONS: 20 WEEK ANATOMY SCAN OUTSIDE/PRIOR DATING DATA: Last menstrual period (LMP): 01/11/2023. LMP-based estimated date of delivery (SEJAL): 10/18/2023. First dating scan (date and location): 03/14/2023. Estimated date of delivery (SEJAL) from first dating scan: 10/19/2023. The calculations are made using the clinical SEJAL of 10/18/2023. TECHNIQUE: Real-time scanning was performed of the fetus, with image documentation and biometric measurements. Endovaginal scanning: Not performed COMPARISON: [facility], , OB <= 14 WEEKS FETUS, 04/01/2023, 12:33. FINDINGS: General: A single living intrauterine gestation is present. Presentation: Breech. Placenta: Placental position is posterior , without previa. Amniotic fluid index: 11.9 cm, normal range is 5-24 cm. Single deepest vertical pocket is 3.9 cm. heart rate: 149 beats per minute. Maternal cervical canal: 4.0 cm long. Normal lower limit is 2.5 cm. biometrics: Biparietal diameter: 4.7 cm, 20 weeks 2 days Head circumference: 18.7 cm, 21 weeks 0 days Abdominal circumference: 16.2 cm, 21 weeks 2 days Femur length: 3.5 cm, 21 weeks 1 day Clinically estimated gestational age: 21 weeks 0 days Composite gestational age from present scan: 21 weeks 1 day Estimated weight and percentile: 401 g, 52 percentile Anatomic survey: Neuro: Ventricles are non-dilated at less than 10 mm. Cisterna magna is normal at 3-11 mm. Cerebellum is normal in size and morphology. Nuchal skin fold: Normal at less than 6 mm between 14-21 weeks gestational age. Face: Nose and lips, facial profile are normal. Spine: No evidence for spina bifida. Heart: 4-chambered heart is present, with normal ventricular outflow tracts. Diaphragm: Diaphragm is intact. Stomach: Left-sided stomach is present. Kidneys: No hydronephrosis. Normal is less than 5 mm in 2nd trimester, less than 7 mm in 3rd trimester. Cord: 3-vessel cord has orthotopic insertion. Bladder: Normal in size. Extremities: All 4 extremities identified. IMPRESSION: 1. Single live intrauterine at 21 weeks and 1 day. 2. Normal anatomic survey. We strive to produce accurate, complete, and clear reports of imaging services. To assist us in improving patient care, this report was composed using standard report templates and voice recognition software. Therefore, it may contain abnormal punctuation, insertions and/or omissions. Occasional wrong-word or sound-alike substitutions may occur. Though we review the report and make efforts to correct it, we do recommend that the report be read carefully in proper context to recognize any text inaccuracies. Dictated by: Zach Wallace M.D. on 06/07/2023 at 17:15 Approved by: Zach Wallace M.D. on 06/07/2023 at 17:18
== END ==
PROVIDERS: Family Provider Internal Medicine; PCP Registered Nurse Diabetes Educator; Referring Provider Obstetrics & Gynecology; Visit Provider Obstetrics & Gynecology
DX: Z34.02 Encounter for supervision of normal first pregnancy, second trimester (principal); Z3A.21 21 weeks gestation of pregnancy
CPT/HCPCS: 76811

== ENCOUNTER → 2023-07-05 13:26 | Outpatient (CLI) | payer OTHER, MEDICAID, SELFPAY ==
[2023-07-05 15:06] LABS: Appearance Urine UA CLEAR; Bilirubin Urine UA NEGATIVE (NEGATIVE); Color Urine UA YELLOW; Glucose Urine UA NEGATIVE (Negative); Ketones Urine UA NEGATIVE (NEGATIVE); Leukocyte Esterase Urine UA NEGATIVE (NEGATIVE); Nitrite Urine UA NEGATIVE (Negative); Occult Blood Urine UA NEGATIVE (Negative); Protein Urine UA NEGATIVE (Negative); Urobilinogen Urine UA 0.2 E.U./dL (0.2)
[2023-07-05 15:07] LABS: pH Urine UA 5.5 (4.5-8.0)
[2023-07-05 15:43] LABS: Bacteria Urine Moderate (10-30); RBC Urine None Seen (0-5/HPF); Squamous Epithelial Cell Urine >30 /HPF (0-5/HPF); WBC Urine 0-1/HPF (0-5/HPF)
[2023-07-05 15:44] LABS: Culture Indicated Urine Specimen Cultured
== END ==
PROVIDERS: Family Provider Internal Medicine; PCP Registered Nurse Diabetes Educator; Referring Provider Obstetrics & Gynecology; Visit Provider Obstetrics & Gynecology
DX: Z34.92 Encounter for supervision of normal pregnancy, unspecified, second trimester (principal); M54.50 Low back pain, unspecified
CPT/HCPCS: 81001; 87086

== ENCOUNTER → 2023-07-12 08:35 | Outpatient (CLI) | payer OTHER, MEDICAID, SELFPAY | PROVIDERS: Family Provider Internal Medicine; PCP Registered Nurse Diabetes Educator; Referring Provider Obstetrics & Gynecology; Visit Provider Obstetrics & Gynecology ==

== ENCOUNTER → 2023-08-02 13:51 | Outpatient (CLI) | payer MEDICAID, SELFPAY ==
[2023-08-02 17:02] LABS: GTT (PREG) 1 Hour PP 50gm Dose 116 mg/dL (76-139)
[2023-08-02 17:54] LABS: Hematocrit 30.6 % (36-46); Hemoglobin 10.6 g/dL (12.0-16.0)
== END ==
PROVIDERS: Family Provider Internal Medicine; PCP Registered Nurse Diabetes Educator; Referring Provider Obstetrics & Gynecology; Visit Provider Obstetrics & Gynecology
DX: Z34.02 Encounter for supervision of normal first pregnancy, second trimester (principal); Z3A.26 26 weeks gestation of pregnancy
CPT/HCPCS: 36415; 82950; 85014; 85018

== ENCOUNTER 2023-08-11 12:40 | Emergency (ER) | payer MEDICAID, SELFPAY ==
[2023-08-11] VITALS (18 sets, daily range): BP systolic 86–132; BP diastolic 45–66; PULSE 94–105; RESP 14–26; TEMP 36.6; O2SAT 97–100
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
--- NOTE | 2023-08-11 13:16 | PC.NURSE ---
L&D RN at bedside for monitoring. heart tones detected and in 140s. No decelerations noted.
[2023-08-11 13:56] LABS: Add Manual Diff / Slide Review NO; Basophils Absolute Auto 100 /uL (0-100); Basophils Percent Auto 0.6 % (0-2); Eosinophils Absolute Auto 100 /uL (0-450); Hematocrit 32.8 % (36-46); Hemoglobin 11.1 g/dL (12.0-16.0); Lymphocytes Absolute Auto 1700 /uL (1100-4500); Lymphocytes Percent Auto 15.6 % (25-40); Mean Corpuscular HGB Conc 33.9 % (30-36); Mean Corpuscular Hemoglobin 28.1 PG (26-34); Mean Corpuscular Volume 82.7 fL (80-100); Monocytes Absolute Auto 800 /uL (0-900); Monocytes Percent Auto 7.7 % (3-14); Neutrophils Absolute Auto 8000 /uL (1500-7000); Neutrophils Percent Auto 75.1 % (50-75); Platelet Count 314 X10^3/uL (150-400); Red Blood Cell Count 3.96 X10^6/uL (4.0-5.2); Red Cell Distribution Width 13.4 % (11.6-14.8); White Blood Cell Count 10.6 X10^3/uL (4.5-11.0)
[2023-08-11 14:16] LABS: Prothrombin Time 11.4 SECONDS (9.4-12.5)
[2023-08-11 14:19] LABS: PTT Partial Thromboplastin Tim 26 SECONDS (25.1-36.5)
[2023-08-11 14:22] LABS: Lactate (Lactic Acid) 1.5 mmol/L (0.7-2.1)
[2023-08-11 14:24] LABS: Alanine Aminotransferase 22 IU/L (<35); Albumin 3.8 g/dL (3.5-5.0); Alkaline Phosphatase 97 U/L (38-126); Aspartate Aminotransferase 26 IU/L (14-36); BUN Creatinine Ratio 26.7 (6-22); Bilirubin Total 0.6 mg/dL (0.2-1.3); Blood Urea Nitrogen 8 mg/dL (7-17); Calcium 9.2 mg/dL (8.4-10.2); Carbon Dioxide 21 mmol/L (22-32); Chloride 102 mmol/L (98-107); Estimated Glomerular Filt Rate > 60 mL/min (>60); Ethanol (ETOH) < 10 mg/dL; Globulin 3.7 g/dL (1.7-4.1); Glucose 106 mg/dL (70-100); HEMOLYSIS < 15 (0-50); Lipase 76 U/L (23-300); Potassium 3.8 mmol/L (3.4-5.1); Sodium 134 mmol/L (137-145); Total Protein 7.5 g/dL (6.3-8.2)
--- NOTE | 2023-08-11 14:28 | PC.NURSE ---
1310- this OB RN at the patients bedside for a NST. 20 minutes of continuous monitoring obtained. Reactive NST for 30 weeks. Baseline 140-150, moderate variability, 10x10 and 15x15. No decelerations. No contractions. EGG PROCESSOR plans to follow up with OB to decide if further testing is needed on L and Ds end. Pt sticker placed on strip, in medical records bin. Pt denies any contractions, leakage of fluid, vaginal bleeding, abdominal pain, STANLEY,and/or blurred vision . 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 Maternal VSS in ER
--- NOTE | 2023-08-11 16:06 | PC.NURSE ---
Pt ambulated to bathroom independently with steady gait. Urine sent to lab. Pt denies any pain, sob, cp, n/v. Pt a&ox4. ROUNDER AND BACKER intact. at bedside.
== END 2023-08-11 17:32 | disposition home or self-care (01) ==
PROVIDERS: Emergency Provider Emergency Medicine; Family Provider Internal Medicine; PCP Registered Nurse Diabetes Educator
DX: O26.93 Pregnancy related conditions, unspecified, third trimester (principal); V49.9XXA Car occupant (driver) (passenger) injured in unspecified traffic accident, initial encounter; Z3A.30 30 weeks gestation of pregnancy
CPT/HCPCS: 36415; 76815; 80053; 80320; 81003; 83605; 83690; 85025; 85610; 85730; 86850; 86900; 86901; 99284

== ENCOUNTER 2023-09-02 11:56 | Outpatient (CLI) | payer OTHER, MEDICAID, SELFPAY ==
--- NOTE | 2023-09-02 12:36 | PM.OBTRLD ---
Visit Information Visit Information Date of evaluation: 09/02/23 On-call OB Provider: Lacy Garcia Reason for Evaluation: Yes pre-term labor Vital Signs Vital Signs: Blood pressure 131/73, pulse 96, temperature 36.9? 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 current occupational exposures/hazards: Yes special юлия needs: No travel history: over 6 months ago seatbelt use: always water heater temp set < 120 deg: Yes working smoke detector in home: Yes fire extinguisher in home: Yes carbon monox detector in home: Yes firearms in home: Yes firearms unloaded and locked: Yes do you feel safe at home: Yes Smoking Status: Never smoker second hand exposure: No alcohol intake: former (rarely when not ) substance use type: does not use during the past year weight has: remained stable well-balanced diet: daily or most days daily servings fruits/ve or more times/day caffeine: Yes (1 cup coffee in AM) Type(s) of exercise: walking Review of Systems Review of Systems Narrative: Patient called in complaining of a small amount of pink discharge on her underwear and perhaps some mild cramping. Patient was on her feet a lot the last few days. Good movement. Evaluation Evaluation Baseline heart rate: 130 Variability: Moderate (11-25) monitor accelerations: Present Monitor Decelerations: Absent Contraction Frequency (minutes): 0 Cervical dilation (cm): 0 Cervical effacement (%): 0 station: -4 Diagnosis, Plan/Disposition Final Diagnosis (1) 33 weeks gestation of : Status: Acute (2) Vaginal bleeding in patient after first trimester: Status: Acute Plan/Disposition Plan: Patient without evidence of labor or cervical dilation. No blood on the the examining fingers. Patient reassured. OB Disposition: home
== END 2023-09-02 12:48 | disposition home or self-care (01) ==
LOC: LABOR 12:35 → OB 09-06 06:20
PROVIDERS: Family Provider Internal Medicine; PCP Registered Nurse Diabetes Educator; Referring Provider Obstetrics & Gynecology; Visit Provider Obstetrics & Gynecology
DX: O46.93 Antepartum hemorrhage, unspecified, third trimester (principal); Z3A.33 33 weeks gestation of pregnancy
CPT/HCPCS: 59025; G0378; G0379

== ENCOUNTER → 2023-09-06 09:08 | Oncology outpatient (ONC) | payer OTHER, MEDICAID, SELFPAY ==
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
--- NOTE | 2023-09-13 10:13 | ONC.SCHED ---
Patient no showed again for her appt. lvm advising her to call back to schedule
== END ==
PROVIDERS: Family Provider Internal Medicine; PCP Registered Nurse Diabetes Educator; Referring Provider Obstetrics & Gynecology; Visit Provider Obstetrics & Gynecology
DX: O99.013 Anemia complicating pregnancy, third trimester (principal); D64.9 Anemia, unspecified; Z3A.34 34 weeks gestation of pregnancy; Z53.29 Procedure and treatment not carried out because of patient's decision for other reasons

== ENCOUNTER 2023-09-19 23:15 | Outpatient (CLI) | payer OTHER, MEDICAID, SELFPAY ==
--- NOTE | 2023-09-20 04:10 | PM.OBTRLD ---
Visit Information Visit Information Date of evaluation: 09/19/23 Primary OB Provider: Florence Pierce On-call OB Provider: Sadia Bassett Comments/Additional reasons for admission: 27YO @ [id number] here for evaluation of decreased FM and pedal edema. Has not felt FM in 2 days. Routine care with . significant for high BMI and COVID and UTI in 2nd trimester. Vital Signs Vital Signs: BP 136/74, HR 80, RR 15, T 97.9F Temporal PFSH Medical History Depression Migraine without aura Rib pain Infertility, female Patient desires No active medical problems Strain of lumbar paraspinal muscle Otitis externa Cerumen impaction Surgical History No pertinent past surgical history Family History Grandmother Diabetes mellitus Social History marital status: unmarried,living together household members: spouse, family ([id number]) and children (s/o's children) lives independently: Yes caregiver/support person: Yes housing: house pets and animals: Yes (3 dogs) education level: high school 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 occupational exposures/hazards: Yes special юлия needs: No travel history: over 6 months ago seatbelt use: always water heater temp set < 120 deg: Yes working smoke detector in home: Yes fire extinguisher in home: Yes carbon monox detector in home: Yes firearms in home: Yes firearms unloaded and locked: Yes do you feel safe at home: Yes Smoking Status: Never smoker second hand exposure: No alcohol intake: former (rarely when not ) substance use type: does not use during the past year weight has: remained stable well-balanced diet: daily or most days daily servings fruits/ve or more times/day caffeine: Yes (1 cup coffee in AM) Type(s) of exercise: walking Exam Vital Signs (past 8 hours): see above Evaluation Evaluation Baseline heart rate: 125 Variability: Moderate (11-25) monitor accelerations: Present Monitor Decelerations: Absent Contraction Frequency (minutes): 0 Diagnosis, Plan/Disposition Final Diagnosis (1) Decreased movement: Status: Acute Plan/Disposition Plan: Reassurance given for reactive NST with FM by monitor and Ksha felt FM right around midnight. Follow-up with on 09/20/23 as previously scheduled. OB Disposition: home
== END 2023-09-20 00:08 | disposition home or self-care (01) ==
LOC: LABOR 23:18 → OB 09-22 10:29
PROVIDERS: Family Provider Internal Medicine; PCP Registered Nurse Diabetes Educator; Referring Provider Nurse Practitioner Obstetrics & Gynecology; Visit Provider Nurse Practitioner Obstetrics & Gynecology
DX: O36.8130 Decreased fetal movements, third trimester, not applicable or unspecified (principal); O12.03 Gestational edema, third trimester; Z3A.35 35 weeks gestation of pregnancy
CPT/HCPCS: 59025; G0378; G0379

== ENCOUNTER → 2023-09-20 09:42 | Outpatient (CLI) | payer OTHER, MEDICAID, SELFPAY ==
[2023-09-21 10:57] LABS: Strep Grp B PCR NEG for Grp B Strep
== END ==
PROVIDERS: Family Provider Internal Medicine; PCP Registered Nurse Diabetes Educator; Visit Provider Obstetrics & Gynecology
DX: Z34.03 Encounter for supervision of normal first pregnancy, third trimester (principal); Z3A.36 36 weeks gestation of pregnancy
CPT/HCPCS: 87086; 87653

== ENCOUNTER 2023-09-20 10:19 | Outpatient (CLI) | payer OTHER, MEDICAID, SELFPAY ==
[2023-09-20 11:21] LABS: Add Manual Diff / Slide Review NO; Basophils Absolute Auto 100 /uL (0-100); Basophils Percent Auto 0.7 % (0-2); Eosinophils Absolute Auto 100 /uL (0-450); Eosinophils Percent Auto 0.6 % (2-4); Hematocrit 30.4 % (36-46); Hemoglobin 9.9 g/dL (12.0-16.0); Lymphocytes Absolute Auto 1800 /uL (1100-4500); Lymphocytes Percent Auto 16.3 % (25-40); Mean Corpuscular HGB Conc 32.6 % (30-36); Mean Corpuscular Hemoglobin 25.8 PG (26-34); Mean Corpuscular Volume 79.3 fL (80-100); Monocytes Absolute Auto 800 /uL (0-900); Neutrophils Absolute Auto 8500 /uL (1500-7000); Neutrophils Percent Auto 75.4 % (50-75); Platelet Count 279 X10^3/uL (150-400); Red Blood Cell Count 3.83 X10^6/uL (4.0-5.2); Red Cell Distribution Width 14.3 % (11.6-14.8); White Blood Cell Count 11.2 X10^3/uL (4.5-11.0)
[2023-09-20 11:37] LABS: Aspartate Aminotransferase 22 IU/L (14-36); BUN Creatinine Ratio 26.5 (6-22); Blood Urea Nitrogen 9 mg/dL (7-17); Estimated Glomerular Filt Rate > 60 mL/min (>60); Uric Acid 3.8 mg/dL (2.5-6.2)
[2023-09-20 11:55] LABS: Creatinine Urine Random 79.6 mg/dL; Protein (Total) Urine Random 30 mg/dL (0-12); Protein Creatinine Ratio Urine 0.37 GRAM/24H
== END 2023-09-20 11:43 | disposition home or self-care (01) ==
LOC: LABOR 11:20 → OB 09-22 10:28
PROVIDERS: Family Provider Internal Medicine; PCP Registered Nurse Diabetes Educator; Referring Provider Obstetrics & Gynecology; Visit Provider Obstetrics & Gynecology
DX: Z34.03 Encounter for supervision of normal first pregnancy, third trimester (principal); Z3A.36 36 weeks gestation of pregnancy; O36.8130 Decreased fetal movements, third trimester, not applicable or unspecified; O12.03 Gestational edema, third trimester; Z3A.35 35 weeks gestation of pregnancy
CPT/HCPCS: 59025; 82570; 84156; 84450; 84550; 85025; 87086; 87653; G0378; G0379

== ENCOUNTER 2023-09-26 12:21 | Observation (INO) | payer OTHER, MEDICAID, SELFPAY ==
[2023-09-26 13:04] LABS: Appearance Urine UA CLEAR; Bilirubin Urine UA NEGATIVE (NEGATIVE); Color Urine UA YELLOW; Glucose Urine UA NEGATIVE (Negative); Ketones Urine UA NEGATIVE (NEGATIVE); Leukocyte Esterase Urine UA 1+ (NEGATIVE); Nitrite Urine UA NEGATIVE (Negative); Occult Blood Urine UA TRACE-INTACT (Negative); Protein Urine UA 2+ (Negative); Specific Gravity Urine UA >=1.030 (1.000-1.035); Urobilinogen Urine UA 0.2 E.U./dL (0.2); pH Urine UA 5.5 (4.5-8.0)
[2023-09-26 13:09] LABS: Urine Volume 10mL (spun)
[2023-09-26 13:10] LABS: Bacteria Urine Moderate (10-30); Culture Indicated Urine Specimen Cultured; RBC Urine 1-5/HPF (0-5/HPF); Squamous Epithelial Cell Urine 1-5 /HPF (0-5/HPF); WBC Urine 5-10/HPF (0-5/HPF)
[2023-09-26] MEDS: LACTATED RINGERS 1,000 ML 1000 ML IV (13:45)
[2023-09-26 13:46] LABS: Adenovirus Not Detected (Not Detect); B. parapertussis Not Detected (Not Detecte); Bordetella pertussis Not Detected (Not Detect); Chlamydophila pneumoniae Not Detected (Not Detect); Coronavirus 229E Not Detected (Not Detect); Coronavirus HKU1 Detected (Not Detect); Coronavirus NL 63 Not Detected (Not Detect); Coronavirus OC43 Not Detected (Not Detect); Human Metapneumovirus Not Detected (Not Detect); Human Rhinovirus/Enterovirus Not Detected (Not Detect); Influenza A Not Detected (Not Detect); Influenza B Not Detected (Not Detect); Mycoplasma pneumoniae Not Detected (Not Detect); Parainfluenza Virus 1 Not Detected (Not Detect); Parainfluenza Virus 2 Not Detected (Not Detect); Parainfluenza Virus 3 Not Detected (Not Detect); Parainfluenza Virus 4 Not Detected (Not Detect); Respiratory Syncytial Virus Not Detected (Not Detect); SARS- CoV-2 Not Detected (Not Detecte)
[2023-09-26 14:23] LABS: Add Manual Diff / Slide Review NO; Basophils Absolute Auto 0 /uL (0-100); Basophils Percent Auto 0.4 % (0-2); Eosinophils Absolute Auto 100 /uL (0-450); Eosinophils Percent Auto 0.7 % (2-4); Hematocrit 31.2 % (36-46); Hemoglobin 10.3 g/dL (12.0-16.0); Lymphocytes Absolute Auto 1700 /uL (1100-4500); Lymphocytes Percent Auto 19.8 % (25-40); Mean Corpuscular HGB Conc 33.2 % (30-36); Mean Corpuscular Hemoglobin 25.7 PG (26-34); Mean Corpuscular Volume 77.4 fL (80-100); Monocytes Absolute Auto 700 /uL (0-900); Monocytes Percent Auto 7.9 % (3-14); Neutrophils Absolute Auto 6200 /uL (1500-7000); Neutrophils Percent Auto 71.2 % (50-75); Platelet Count 277 X10^3/uL (150-400); Red Blood Cell Count 4.03 X10^6/uL (4.0-5.2); Red Cell Distribution Width 14.6 % (11.6-14.8); White Blood Cell Count 8.7 X10^3/uL (4.5-11.0)
[2023-09-26 14:37] LABS: Aspartate Aminotransferase 25 IU/L (14-36); BUN Creatinine Ratio 26.5 (6-22); Blood Urea Nitrogen 9 mg/dL (7-17); Estimated Glomerular Filt Rate > 60 mL/min (>60); Uric Acid 4.2 mg/dL (2.5-6.2)
[2023-09-26 16:37] LABS: Creatinine Urine Random 104.3 mg/dL; Protein (Total) Urine Random 66 mg/dL (0-12); Protein Creatinine Ratio Urine 0.63 GRAM/24H
== END 2023-09-26 15:23 | disposition home or self-care (01) ==
PROVIDERS: Admitting Provider Obstetrics & Gynecology; Family Provider Internal Medicine; PCP Registered Nurse Diabetes Educator; Referring Provider Obstetrics & Gynecology; Visit Provider Obstetrics & Gynecology
DX: O98.513 Other viral diseases complicating pregnancy, third trimester (principal); O26.893 Other specified pregnancy related conditions, third trimester; H53.8 Other visual disturbances; R30.9 Painful micturition, unspecified; B34.2 Coronavirus infection, unspecified; Z3A.36 36 weeks gestation of pregnancy
CPT/HCPCS: 59025; 59050; 81001; 82570; 84156; 84450; 84550; 85025; 87086; 87633; 96360; G0378; G0379

== ENCOUNTER 2023-10-05 17:21 | Inpatient (IN) | payer OTHER, MEDICAID, SELFPAY ==
[2023-10-05] MEDS: miSOPROStoL 25 MCG TABLET VAG ×2 (18:23→22:28)
[2023-10-05 18:24] LABS: Add Manual Diff / Slide Review NO; Basophils Absolute Auto 100 /uL (0-100); Eosinophils Absolute Auto 0 /uL (0-450); Eosinophils Percent Auto 0.4 % (2-4); Hemoglobin 10.9 g/dL (12.0-16.0); Lymphocytes Absolute Auto 2700 /uL (1100-4500); Lymphocytes Percent Auto 24.1 % (25-40); Mean Corpuscular Hemoglobin 25.3 PG (26-34); Mean Corpuscular Volume 76.6 fL (80-100); Monocytes Absolute Auto 800 /uL (0-900); Monocytes Percent Auto 6.8 % (3-14); Neutrophils Absolute Auto 7500 /uL (1500-7000); Neutrophils Percent Auto 67.7 % (50-75); Platelet Count 341 X10^3/uL (150-400); Red Blood Cell Count 4.31 X10^6/uL (4.0-5.2); Red Cell Distribution Width 15.2 % (11.6-14.8); White Blood Cell Count 11.1 X10^3/uL (4.5-11.0)
[2023-10-05 18:47] LABS: Aspartate Aminotransferase 33 IU/L (14-36); Blood Urea Nitrogen 9 mg/dL (7-17); Estimated Glomerular Filt Rate > 60 mL/min (>60); Uric Acid 4.9 mg/dL (2.5-6.2)
--- NOTE | 2023-10-05 19:46 | PM.OBHP.IH.1 ---
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 Estimated Delivery Date Method Current WG Current Estimate 10/18/23 LMP (Certain) 38w 1d Other Estimates 10/19/23 Ultrasound #1 38w 0d 10/18/23 Ultrasound #2 38w 1d Estimated Gestational Age (weeks): 38+1 : 1 Para: 0 care: good care, initiated at week # (11), number of visits (8) and pounds weight gain (5) Dating criteria OB: LMP confirmed by 1st trimester US Ultrasounds: normal 1st trimester US and normal mid trimester US Obstetrical complications: gestational hypertension Medical complications OB: none Indications Indication for induction OB: gestational HTN/pre-eclampsia Preadmission Labs Last OB Lab Results: Blood Type O Positive 10/05/23 18:10 Antibody Screen Negative 10/05/23 18:10 Hematocrit 33.0 % (36-46) L 10/05/23 18:10 Hemoglobin 10.9 g/dL (12.0-16.0) L 10/05/23 18:10 Hepatitis B Surface Antigen Negative s/c (NEGATIVE) 04/01/23 13:07 Hepatitis C Antibody Negative s/c (NEGATIVE) 04/01/23 13:07 Rubella Antibody 157.0 IU/mL (>15) 04/01/23 13:07 Varicella-Zoster IgG Antibody 3716 index (Immune >165) 04/01/23 13:07 Glucose 1 Hour 116 mg/dL (76-139) 08/02/23 14:03 Group B Streptococcus (PCR) Neg for grp b strep 09/20/23 09:42 -: Chlamydia screen: negative, Gonorrhea screen: negative and Urine: negative -: PAP smear: Normal Genetic Screens: Cell-free DNA: Normal (normal female) External Labs -: Urine: negative Evaluation Evaluation Baseline heart rate: 130 Variability: Moderate (11-25) monitor accelerations: Present Monitor Decelerations: Absent Status: Category l Dilation (cm): 0 Effacement (%): 25 Dilation: Closed Effacement: 0-30% station: -2 Position of cervix: posterior Consistency: firm Barger score: 1 PFSH Medical History Depression Migraine without aura Rib pain Infertility, female Patient desires No active medical problems Strain of lumbar paraspinal muscle Otitis externa Cerumen impaction Surgical History No pertinent past surgical history Family History Grandmother Diabetes mellitus Social History marital status: unmarried,living together household members: spouse, family ([id number]) and children (s/o's children) lives independently: Yes caregiver/support person: Yes housing: house pets and animals: Yes (3 dogs) education level: high school 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 occupational exposures/hazards: Yes special юлия needs: No travel history: over 6 months ago seatbelt use: always water heater temp set < 120 deg: Yes working smoke detector in home: Yes fire extinguisher in home: Yes carbon monox detector in home: Yes firearms in home: Yes firearms unloaded and locked: Yes do you feel safe at home: Yes Smoking Status: Never smoker second hand exposure: No alcohol intake: former (rarely when not ) substance use type: does not use during the past year weight has: remained stable well-balanced diet: daily or most days daily servings fruits/ve or more times/day caffeine: Yes (1 cup coffee in AM) Type(s) of exercise: walking [employer] Home Medications and Allergies Home Medications Medication Instructions Recorded Confirmed Type sumatriptan succinate 50 mg tablet See Rx Instructions PO .COMPLEX 01/05/22 09/20/23 Rx #10 tabs vit no.95-ferrous 1 tab PO DAILY #90 tabs 04/01/23 09/20/23 Rx fumarate 28 mg-folic acid 800 mcg tablet ( Multivitamins) ondansetron 4 mg disintegrating 4 mg PO Q6H PRN for 04/18/23 09/20/23 Rx tablet nausea/vomiting #20 tabs Allergies Allergy/AdvReac Type Severity Reaction Status Date / Time No Known Drug Allergies Allergy Verified 10/05/23 09:56 OB Exam Narrative Exam Narrative: Gen: Patient walking in room, NAD Lungs: CTA bilat CV: RRR FH: 38 cm EFW: 7 # Ext: 1+ edema, 1+ DTR. No clonus Objective Labs 10/05/23 18:10 10/05/23 18:10 Labs: Laboratory Results - last 24 hr 10/05/23 18:10 WBC 11.1 H RBC 4.31 Hgb 10.9 L Hct 33.0 L MCV 76.6 L MCH 25.3 L MCHC 33.0 RDW 15.2 H Plt Count 341 Neut % (Auto) 67.7 Lymph % (Auto) 24.1 L [place] % (Auto) 6.8 Eos % (Auto) 0.4 L Baso % (Auto) 1.0 Neut # (Auto) 7500 H Lymph # (Auto) 2700 [place] # (Auto) 800 Eos # (Auto) 0 Baso # (Auto) 100 BUN 9 Creatinine 0.36 L Estimated GFR > 60 BUN/Creatinine Ratio 25.0 H Uric Acid 4.9 AST 33 Blood Type O Positive Antibody Screen Negative Assessment and Plan Assessment and Plan Assessment and Plan narrative: Assessment: 27 year old at 38+1 wks gestation with preeclampsia Unfavorable cervix Plan: Cytotec cervical ripening Pitocin in am if favorable Time Spent with Patient Total time spent with greater than 50% in coordination of care (as documented) at patient's floor/unit and/or counseling patient:: 15-24 minutes
[2023-10-06] MEDS: miSOPROStoL 25 MCG TABLET VAG ×2 (02:21→06:31)
--- NOTE | 2023-10-06 08:34 | PM.OBPNLAB ---
Date/Time Date Patient Seen: 10/06/23 Time Patient Seen: 07:50 Pain Control Pain control: tolerating well Comments: Didn't sleep well due to pain Pelvic Exam Effacement (%): 25 station: -2 Contractions Contractions on admission: none Monitor mode: External Contraction frequency (min): 2 Contraction duration (min): 1 Contraction pattern: Irregular Contraction intensity: Mild Status status: Category l Heart Rate Baseline: 135 Monitor Accelerations: Present Monitor Decelerations: Absent Monitor Variability: Moderate Assessment and Plan Assessment: induction ongoing Comments: Recheck cervix at 1030 and decide on next steps Continue to monitor blood pressure
--- NOTE | 2023-10-06 14:14 | PM.OBPNLAB ---
Date/Time Date Patient Seen: 10/06/23 Time Patient Seen: 13:10 Pain Control Pain control: tolerating well Pelvic Exam Dilation (cm): 1 Effacement (%): 85 station: -1 Amniotic membrane status: Intact Contractions Contractions on admission: none Monitor mode: External Contraction frequency (min): 3 Contraction duration (min): 1 Contraction pattern: Irregular Contraction intensity: Mild Status status: Category l Heart Rate Baseline: 135 Monitor Accelerations: Present Monitor Decelerations: Absent Monitor Variability: Moderate Assessment and Plan Assessment: induction ongoing Comments: Attempted a Kenney catheter placement, but was unable to pass the catheter past the cervical os. Plan: Recheck patient in 2-3 hours and see if we could start Pitocin or attempt Kenney bulb at that point
--- NOTE | 2023-10-06 20:56 | PM.OBPNLAB ---
Date/Time Date Patient Seen: 10/06/23 Time Patient Seen: 20:10 Pain Control Pain control: tolerating well Comments: Contractions have spaced out Pelvic Exam Effacement (%): 85 station: -1 Amniotic membrane status: Intact Contractions Monitor mode: External Contraction frequency (min): 6 Contraction duration (min): 1 Contraction pattern: Irregular Contraction intensity: Mild Status status: Category l Heart Rate Baseline: 135 Monitor Accelerations: Present Monitor Decelerations: Absent Monitor Variability: Moderate Assessment and Plan Assessment: induction ongoing Comments: Oral cytotec overnight Morphine for pain management Ambien as needed for sleep Will reassess cervix in the am and decide on Pitocin
[2023-10-06] MEDS: miSOPROStoL 25 MCG TABLET 50 MCG PO (23:26)
[2023-10-07] MEDS: miSOPROStoL 25 MCG TABLET 50 MCG PO (04:59)
--- NOTE | 2023-10-07 08:23 | PM.OBPNLAB ---
Date/Time Date Patient Seen: 10/07/23 Time Patient Seen: 07:40 Pelvic Exam Effacement (%): 85 station: -1 Amniotic membrane status: Intact Contractions Monitor mode: External Contraction frequency (min): 6 Contraction pattern: Irregular Contraction intensity: Mild Status status: Category l Heart Rate Baseline: 135 Monitor Accelerations: Present Monitor Decelerations: Absent Monitor Variability: Moderate Assessment and Plan Assessment: induction ongoing Comments: Begin Pitocin AROM when able Epidural prn Expectant management to
[2023-10-07] MEDS: LACTATED RINGERS 1,000 ML 100 ML IV (10:30)
[2023-10-07] MEDS: OXYTOCIN PREMIX 30 UNIT/500 ML PLAST..BAG IV (10:42)
--- NOTE | 2023-10-07 12:47 | PM.OBPNLAB ---
Date/Time Date Patient Seen: 10/07/23 Time Patient Seen: 11:00 Pain Control Pain control: tolerating well Pelvic Exam Dilation (cm): 2 Effacement (%): 85 station: -1 Amniotic membrane status: Intact Contractions Contractions on admission: none Monitor mode: External Pitocin rate (mU/min): 2 Contraction frequency (min): 5 Contraction duration (min): 1 Contraction pattern: Regular Contraction intensity: Mild Status status: Category l Heart Rate Baseline: 145 Monitor Accelerations: Present Monitor Decelerations: Absent Monitor Variability: Moderate Assessment and Plan Assessment: induction ongoing Comments: Will recheck at 1pm and see if AROM able Expectant management to
--- NOTE | 2023-10-07 14:52 | P.PCN_ITS ---
Regional Block Pre-procedure Procedure: Continuous Lumbar Epidural for L&D Attending OB provider: Florence Pierce PMH/ROS narrative: 27yo female full-term in labor requesting epidural. See pre-anesthesia assessment for details. ASA Class: III Labs: Hct 33.0 % (36-46) L 10/05/23 18:10 Hct Not Reportable 10/05/23 18:10 Plt Count 341 X10^3/uL (150-400) 10/05/23 18:10 Plt Count Not Reportable 10/05/23 18:10 Medications: Current Medications Generic Name Dose Route Start Last Admin Trade Name Freq PRN Reason Stop Dose Admin Calcium Carbonate 1,000 mg 10/05/23 17:35 Calcium Carbonate 500 Mg Tab PO Q4HR PRN Dyspepsia Carboprost Tromethamine 250 mcg 10/05/23 17:35 Carboprost 250 Mcg/Ml Ampul IM Q90M PRN Bleeding Diphenhydramine HCl 25 mg 10/07/23 14:50 Diphenhydramine 50 Mg/Ml Vial IV Q10M PRN Pruritis Ephedrine Sulfate 5 mg 10/07/23 14:50 Ephedrine 50 Mg/Ml Vial IV Q5M PRN Blood pressure decrease more than 20% of baseline. Fentanyl 50 mcg 10/05/23 17:35 Fentanyl 100 Mcg/2 Ml Inj IV Q1H PRN Pain, Moderate (4-6) Oxytocin/Lactated Ringer's 30 unit in 500 mls @ 200 mls/hr 10/05/23 17:35 Oxytocin Premix IV CONT PRN Bleeding Protocol Tranexamic Acid 1,000 mg/ 100 mls @ 200 mls/hr 10/05/23 17:35 Sodium Chloride IV NOW PRN Bleeding Lactated Ringer's 1,000 mls @ 100 mls/hr 10/05/23 17:45 10/07/23 10:30 Lactated Ringers IV 100 mls/hr CONT PERNELL Administration Oxytocin/Lactated Ringer's 30 unit in 500 mls @ 2 mls/hr 10/07/23 10:30 10/07/23 10:42 Oxytocin Premix IV 2 milliunit/min TITRATE PERNELL 2 mls/hr Administration Protocol 2 MILLIUNIT/MIN FENT 2MCG/ML BUPIV 0.125% EPI 200 mcg in 100 mls @ 6 mls/hr 10/07/23 15:00 Fentanyl/Bupiv/Ns 2mcg/Ml - 0.125% EPIDURAL CONT PERNELL Lidocaine HCl 20 ml 10/05/23 17:35 Lidocaine 1% 20 Ml INJ INTRA-OP PRN Post Delivery Misoprostol 800 mcg 10/05/23 17:35 Misoprostol 200 Mcg Tablet NM NOW PRN Bleeding Misoprostol 400 mcg 10/05/23 17:35 Misoprostol 200 Mcg Tablet SL NOW PRN Bleeding Misoprostol 25 mcg 10/05/23 17:45 10/06/23 06:31 Misoprostol 25 Mcg Tablet VAG 25 mcg Q4H PERNELL Administration Misoprostol 50 mcg 10/06/23 21:00 10/07/23 04:59 Misoprostol 25 Mcg Tablet PO 50 mcg QID PERNELL Administration Morphine Sulfate 2 mg 10/06/23 20:25 Morphine 2 Mg/Ml Inj IV Q4HR PRN Pain, Moderate (4-6) Nalbuphine HCl 2.5 mg 10/07/23 14:50 Nalbuphine 20 Mg/Ml Ampul IV Q10M PRN Pruritis Naloxone HCl 0.2 mg 10/05/23 17:35 Naloxone 0.4 Mg/Ml Vial IV Q2MIN PRN Opiate Reversal Ondansetron HCl 4 mg 10/05/23 17:35 Ondansetron 4 Mg/2 Ml Inj IV Q4HR PRN Nausea And Vomiting Oxytocin 10 unit 10/05/23 17:35 Oxytocin 10 Unit/Ml Vial IM NOW PRN Bleeding Allergies: Allergies Allergy/AdvReac Type Severity Reaction Status Date / Time No Known Drug Allergies Allergy Verified 10/05/23 09:56 Procedure Insertion date: 10/07/23 Insertion time: 14:26 Prep/Local: 1% lidocaine (Chloraprep) Interspace: L4-5 on 3rd attempt. Difficult placement. 1st attempt L3-4, 2nd L2- 3. Patient position: sitting (Unable to even out hip placement despite multiple attempts) Needle: 18 gauge Katya Loss of resistance with: saline SHAHIDA at (cm): 8 Catheter placed at SKIN (cm): 15 Catheter in SPACE (cm): 7 Insertion: No CSF, No Blood, No Paresthesia with insertion, No Paresthesia with injection and No Test dose reaction Initial Medications TEST DOSE time: 14:27 TEST DOSE: 1.5% lidocaine with epinephrine 1:200k (mL): 3 BOLUS DOSE time: 14:56 BOLUS DOSE (mL): 2 Infusion INFUSION: 0.125% bupivacaine and with fentanyl 2 mcg/mL Initial rate (mL/hr): 10 Subsequent interventions: 14:46 Clinician bolus of 5 ml from epidural infusion. 21:47 Called for pt c/o of increased pain with contractions. Now dilated from 3 cm to 9 cm. Gave bolus of 2% lido PF, 5 ml, and clinician bolus of 5 ml from epidural pump. Pump settings noted to have reset to default of 6 ml/hr and 3-ml bolus when infusion bag was changed by RN. Reset to 10 ml/hr and 5-ml bolus. 22:10 Rechecked pt. She appears cheerful and comfortable, reports much less pain with contractions. No changes made. Post-procedure Anesthesia date START: 10/07/23 Anesthesia time START: 14:07 Anesthesia date END: 10/07/23 Anesthesia time END: 22:44 Post-procedure Anesthesia Assessment: Yes CV function: HR/BP stable, Yes Resp function: RR/sat/airway adequate, Yes Post-op hydration adequate, Yes Pain control adequate, Yes Nausea & vomiting absent, Yes Temperature > 36 C, Yes Mental status appropriate and No Anesthesia complications
[2023-10-07] MEDS: FENT 2MCG/ML BUPIV 0.125% EPI 200 MCG/100 ML PLAST..BAG 6 MCG EPIDURAL (19:34)
--- NOTE | 2023-10-07 23:30 | PM.OBPNLAB ---
Date/Time Date Patient Seen: 10/07/23 Time Patient Seen: 17:15 Pain Control Pain control: epidural Pelvic Exam Dilation (cm): 3 Effacement (%): 85 station: -1 Amniotic membrane status: Intact Contractions Contractions on admission: none Monitor mode: External Pitocin rate (mU/min): 6 Contraction frequency (min): 4 Contraction duration (min): 1 Contraction pattern: Regular Contraction intensity: Mild Status status: Category l Heart Rate Baseline: 135 Monitor Accelerations: Present Monitor Decelerations: Early Monitor Variability: Moderate Assessment and Plan Assessment: active labor Plan: continuous present management Comments: Expectant management to
--- NOTE | 2023-10-07 23:31 | PM.OBPNLAB ---
Date/Time Date Patient Seen: 10/07/23 Time Patient Seen: 20:30 Pain Control Pain control: epidural Pelvic Exam Dilation (cm): 7 Effacement (%): 100 station: -1 Amniotic membrane status: Ruptured Contractions Contractions on admission: none Monitor mode: External Pitocin rate (mU/min): 6 Contraction frequency (min): 3 Contraction duration (min): 1 Contraction pattern: Regular Contraction intensity: Strong/Firm Status status: Category ll Heart Rate Baseline: 130 Monitor Accelerations: Present Monitor Decelerations: Early and Variable Monitor Variability: Moderate Assessment and Plan Assessment: active labor Plan: continuous present management Comments: Side to side with peanut ball Expectant management to
--- NOTE | 2023-10-07 23:31 | PM.OBPRVD ---
Events: Induced HTN Labor & Delivery Delivery date: 10/07/23 Intrapartal Events: Mild Preeclampsia Cervical ripening method: per misoprostal protocol (and Cervidil) Induction method: per pitocin protocol Delivery augmentation: rupture of membranes Delivery monitor: external FHT and external uterine Route of delivery: Episiotomy description: None L&D Laceration Description: Perineal - 2nd Degree and Vaginal - 2nd Degree Delivery repair: vicryl and chromic Quantitative Blood Loss: 1,450 Anesthesia Type: Epidural Complications: None Narrative: Patient complete and pushed x 16 min. At 2244, a live female infant delivered spontaneously over an intact perineum in the YENNY presentation. A double nuchal cord was reduced on the perineum. The remainder of the body delivered without difficulty and placed on moms abdomen. Pitocin was given in the IVF's. The cord was double-clamped and cut. Cord bloods were obtained. The placenta delivered intact with a 3 vessel cord at 2257. The fundus was massaged to firm. The perinium/vagina were inspected and a second degree laceration was noted and repaired in the usual fashion with 2-0 Chromic and 2-0 Vicryl suture. Hemostasis was achieved. QBL: 1450cc. Counts correct. Pumping. Apgars 6 at one minute and 8 at 5 minutes. Epidural. Mom and stable to recovery. [place] Baby 1: gender: Female Presentation: vertex Position: Right Occiput Anterior Placenta delivery description: Spontaneous Cord Vessel Description: 3 Vessels, Nuchal Cord (x 2), Reduced and Clamped/Cut (after cord stopped pulsing) score (1 min): 6 score (5 min): 8 weight: 6 lb 12 oz Plan for aftercare: Routine care
[2023-10-08] MEDS: ONDANSETRON 4 MG/2 ML INJ IV (01:36)
[2023-10-08] MEDS: IBUPROFEN 600 MG TABLET PO ×4 (01:37→23:46)
[2023-10-08] MEDS: ACETAMINOPHEN 325 MG TABLET 650 MG PO ×4 (01:37→23:47)
[2023-10-08 06:32] LABS: Hematocrit 25.7 % (36-46); Hemoglobin 8.4 g/dL (12.0-16.0)
[2023-10-08] MEDS: DOCUSATE 100 MG CAPSULE PO (08:50)
[2023-10-08] MEDS: PRENATAL VIT,CALC/IRON/FOLIC 1 TABLET 1 TAB PO (08:50)
[2023-10-08] MEDS: IRON SUCROSE 300 MG in SODIUM CHLORIDE 0.9% 250 ML 176.667 MG IV (09:14)
[2023-10-09 06:27] LABS: Hematocrit 22.8 % (36-46); Hemoglobin 7.5 g/dL (12.0-16.0)
--- NOTE | 2023-10-09 16:34 | PM.OBPN.1 ---
Subjective - OB Subjective Patient comments: no complaints and pain well controlled baby status: doing well and bottle feeding well Date Patient Seen: 10/09/23 Time Patient Seen: 08:40 Interval history: PPD#1 s/p . 1400cc blood loss. Some dizziness last night. None now. Exam Narrative Exam Narrative: Gen: Sitting up in bed, eating breakfast, NAD Fundus: Firm U/-1 Ext: 1+ edema, Negative Kelli's Objective Labs 10/09/23 06:19 10/05/23 18:10 Labs: Laboratory Results - last 24 hr 10/09/23 06:19 Hgb 7.5 L Hct 22.8 L Assessment & Plan Plan day: 1 Comments: Plan: Iron infusion Repeat H/H tomorrow Time Spent With Patient Time: Total time spent is greater than 50% in coordination of care (as documented) at patient's floor/unit and/or counseling patient: Time with patient: 15-24 minutes
--- NOTE | 2023-10-09 16:39 | P.DS_ITS ---
Discharge Providers Provider Date of admission: 10/05/23 17:21 Discharge Date: 10/09/23 Primary care physician: ROSE Villegas Consults: 10/05/23 17:36 Consult to Anesthesiology Urgent Comment: Consulting Provider: Anesthesiologist Reason for consultation: Epidural Has provider been notified: No 10/08/23 23:27 Consult to Brand Ambassador Promotional Model Routine Comment: Discharge provider: Florence Pierce MD Summary Hospital Course Date Patient Seen: 10/09/23 Time Patient Seen: 11:40 Diagnoses: 38+1 weeks gestation Gestational hypertension Cervical ripening Pitocin induction of labor Spontaneous vaginal delivery Second degree laceration anemia Hospital Course: Patient is a 27 year old who presented on 10/05/23 for cervical ripening/induction of labor due to gestational hypertension/mild preeclampsia. She received Misoprostol overnight. Cervix was not favorable in the morning on 10/06/23, but contractions were too close together. They spaced out by evening and received Misoprostol overnight. Her cervix was favorable in the morning on 10/07/23 and Pitocin was started. AROM was performed at 1330 of copious clear fluid. She received an epidural for pain management. She progressed to complete dilation. She had an without complication. She had a second degree laceration that was repaired. On PPD #1 she was found to be anemic, and received an iron infusion. She was asymptomatic. On PPD #2 she was doing well and was discharged to home in stable condition. Peripartum Data Delivery Method: Natural Vaginal Laceration Description: Perineal - 2nd Degree and Vaginal - 2nd Degree Episiotomy description: None Procedures: Cervical ripening Pitocin induction of labor Artificial rupture of membranes Epidural analgesia Spontaneous vaginal delivery Second degree laceration repair Iron infusion complications: none 1: Gender: Female Disposition of : home Status at Discharge Cognitive/behavioral status at discharge: oriented Functional status at discharge: independent ambulation Overall status at discharge: patient is progressing back to baseline Time Spent with Patient Time attestation: Total time spent providing and/or coordinating discharge services: Time spent: Less than 30 minutes Objective Labs 10/09/23 06:19 10/05/23 18:10 Labs: Laboratory Results - last 24 hr 10/09/23 06:19 Hgb 7.5 L Hct 22.8 L Exam Narrative Exam Narrative: Gen: Sitting up in chair, NAD Fundus: Firm U/-1 Ext: 1+ edema, negative Kelli's Discharge Plan Discharge Plan Patient Disposition: Home Provider Discharge Comment: Call with fever, chills, or bleeding vaginally more than a pad in an hour Ibuprofen 600 mg every 6 hours as needed for cramping Push oral fluids Eat iron rich foods such as green leafy vegetables and meat Continue vitamins Stool softeners until bowel returns to normal Use water bottle with urination so that concentrated urine does not run over the stitches Use wet wipes for bowel movements Pat the area dry Tight pre sports bra if deciding not to pump Discharge orders & Medications Prescriptions: Continued sumatriptan succinate 50 mg tablet See Rx Instructions PO .COMPLEX Qty: 10 3RF Rx Instructions: take 1 tab at onset of headache; if no relief may repeat 1 tab after at least 2 hrs; max = 4 tabs/24 hr PO PNV cmb#95-ferrous fumarate-FA [ Multivitamins] 28 mg iron- 800 mcg tablet 1 tab PO DAILY Qty: 90 3RF Discontinued ondansetron 4 mg tablet,disintegrating 4 mg PO Q6H PRN (Reason: for nausea/vomiting) Qty: 20 3RF Follow up/Referrals: Florence Pierce MD [Physician] - (My office will call on October 10, 2023 to schedule her 6 week visit) Diet/Activity/Treatments Diet: Regular Activity: Nothing in the vagina for 6 weeks Skin/Wound/Dressing Care Report to your healthcare provider any signs of infection, such as:: chills, fever, increased pain and unusual redness Visit Report/Discharge Packet Instructions: DI for Labor and Delivery, Vaginal Stand Alone Forms: Discharge: Care, Patient Portal/API Discharge Data Primary Care Provider: Aidan Lees
== END 2023-10-09 16:50 | disposition home or self-care (01) | DRG 560 ==
PROVIDERS: Admitting Provider Obstetrics & Gynecology; Family Provider Internal Medicine; PCP Registered Nurse Diabetes Educator; Referring Provider Obstetrics & Gynecology; Visit Provider Obstetrics & Gynecology
DX: O14.04 Mild to moderate pre-eclampsia, complicating childbirth (principal); Z3A.38 38 weeks gestation of pregnancy; Z37.0 Single live birth; O70.1 Second degree perineal laceration during delivery; O90.81 Anemia of the puerperium; D50.0 Iron deficiency anemia secondary to blood loss (chronic)
CPT/HCPCS: 36415; 59050; 59200; 59400; 84450; 84550; 85014; 85018; 85025; 86850; 86900; 86901; G0379; J1756; J2405; J2590

== ENCOUNTER 2025-05-05 15:59 | Emergency (ER) | payer OTHER, SELFPAY | END 2025-05-05 16:32 | disposition left against medical advice (07) | LOC: ED 16:37 | PROVIDERS: Emergency Provider Student in an Organized Health Care Education/Training Program; Family Provider Internal Medicine ==